=== PATIENT | male | born 1965 | race Caucasian/White ===

== ENCOUNTER 2016-09-27 23:59 | Emergency (ER) | payer BC, OTHER ==
--- NOTE | 2016-09-28 00:21 | EDM.PDOC ---
ED HPI GENERAL MEDICAL PROBLEM - General Chief Complaint: General Stated Complaint: SWOLLED A RAZAR Time Seen by Provider: 09/28/16 00:20 Source of Information: Reports: Patient, Police - History of Present Illness INITIAL COMMENTS - FREE TEXT/NARRATIVE: HISTORY AND PHYSICAL: History of present illness: Patient reports that he had swallowed a razor blade while incarcerated, ingestion first reported at 9 PM Now he denies doing so No fever nausea vomiting chills sweats chest pain shortness breath headache dizziness palpitation no bowel or urine symptoms Review of systems: As per history of present illness and below otherwise all systems reviewed and negative. Past medical history: As per history of present illness and as reviewed below otherwise noncontributory. Surgical history: As per history of present illness and as reviewed below otherwise noncontributory. Social history: No reported history of drug or alcohol abuse. Family history: As per history of present illness and as reviewed below otherwise noncontributory. Physical exam: HEENT: Atraumatic, normocephalic, pupils reactive, negative for conjunctival pallor or scleral icterus, mucous membranes moist, throat clear, neck supple, nontender, trachea midline. Lungs: Clear to auscultation, breath sounds equal bilaterally, chest nontender. Heart: S1S2, regular, negative for clicks, rubs, or JVD. Abdomen: Soft, nondistended, nontender. Negative for masses or hepatosplenomegaly. Negative for costovertebral tenderness. Pelvis: Stable nontender. Genitourinary: Deferred. Rectal: Deferred. Extremities: Atraumatic, negative for cords or calf pain. Neurovascular unremarkable. Neuro: Awake, alert, oriented. Cranial nerves II through XII unremarkable. Cerebellum unremarkable. Motor and sensory unremarkable throughout. Exam nonfocal. Diagnostics: [] Chest one view Abdominal x-ray one view Therapeutics: [] None Impression: [] No radio opaque foreign body Malingering Definitive disposition and diagnosis as appropriate pending reevaluation and review of above. - Related Data Allergies Allergy/AdvReac Type Severity Reaction Status Date / Time No Known Allergies Allergy Verified 09/28/16 00:20 Home Meds: Home Meds ALPRAZolam [Xanax] 1 mg PO TID 09/28/16 [History] ARIPiprazole [Abilify] 1 mg PO ASDIRECTED 09/28/16 [History] carBAMazepine [Tegretol] 400 mg PO BID 09/28/16 [History] ED ROS GENERAL - Review of Systems Review Of Systems: ROS reveals no pertinent complaints other than HPI. ED EXAM, GENERAL - Physical Exam Exam: See Below Course - Vital Signs Last Recorded V/S: Last Vital Signs Temp 36.7 C 09/28/16 00:20 Pulse 65 09/28/16 00:20 Resp 16 09/28/16 00:20 BP 182/98 H 09/28/16 00:20 Pulse Ox 94 L 09/28/16 00:20 - Orders/Labs/Meds Orders: Active Orders 24 hr Category Date Time Status Abdomen 1V Upright [CR] Stat Exams 09/28/16 00:21 Taken Chest 1V Frontal [CR] Stat Exams 09/28/16 00:21 Ordered Departure - Departure Time of Disposition: 01:59 Disposition: Home, Self-Care 01 Condition: good Clinical Impression: Malingering Clinical Impression: (Ruled Out): Physically well but worried - Discharge Information Referrals: PCP,None [Primary Care Provider] - Forms: ED Department Discharge - My Orders Last 24 Hours: My Active Orders 09/28/16 00:21 Abdomen 1V Upright [CR] Stat Chest 1V Frontal [CR] Stat - Assessment/Plan Last 24 Hours: My Active Orders 09/28/16 00:21 Abdomen 1V Upright [CR] Stat Chest 1V Frontal [CR] Stat
[2016-09-28 02:46] VITALS: BP 140/80
--- NOTE | 2016-09-29 13:43 | CR ---
EXAM DATE: 09/27/16 PATIENT'S AGE: 51 Patient: GONZALO ROGERS Facility: [place], [place] Site . Site : 1965 Study: XRay Chest [id number]/29/2017 1:37:32 AM Ordering Physician: Pura Garcia Final Report: INDICATIONS: Possible foreign body. Razor. TECHNIQUE: Chest 1 view. COMPARISON: Abdominal radiograph same day. Chest radiograph 05/12/2013. FINDINGS: No pneumothorax or pleural effusion. The lungs are clear. Cardiac and mediastinal contours are within normal limits. Surgical anchors in the left humeral head. No radiopaque foreign body demonstrated. IMPRESSION: No evidence of acute cardiopulmonary disease or radio-opaque foreign body. Dictated by Milton Driver MD @ 09/28/2016 1:54:34 AM Dictated by: Milton Driver MD @ 09/28/2016 01:54:43 (Electronic Signature) Report Signed by Proxy. CAROL
--- NOTE | 2016-09-29 13:44 | CR ---
EXAM DATE: 09/27/16 PATIENT'S AGE: 51 Patient: GONZALO ROGERS Facility: [place], [place] Site . Site : 1965 Study: XRay Abdomen [id number]/29/2017 1:37:55 AM Ordering Physician: Pura Garcia Final Report: Indication: Possible foreign body. A razor. Technique: Abdomen two views. Comparison: Chest radiograph same day. Findings: The bowel gas pattern is nonobstructive. No evidence of free intraperitoneal gas. No radiopaque foreign body demonstrated. Fecal loading of the colon. Soft tissues elsewhere as imaged are unremarkable. Mild degenerative changes of the spine. Impression: No evidence of radiopaque foreign body in the abdomen. Dictated by Milton Driver MD @ 09/28/2016 1:56:28 AM Dictated by: Milton Driver MD @ 09/28/2016 01:56:37 (Electronic Signature) Report Signed by Proxy. CAROL
== END 2016-09-28 02:10 ==
LOC: MW.ED 23:59
DX: Z76.5 Malingerer [conscious simulation] (principal)
CPT/HCPCS: 71010; 71010-26; 74000; 74000-26; 99282; 99283

== ENCOUNTER 2016-10-19 10:13 | Emergency (ER) | payer BC ==
[2016-10-19 10:30] VITALS: BP 161/95
== END 2016-10-19 11:08 | disposition left against medical advice (07) ==
LOC: MW.ED 10:13
DX: Z53.21 Procedure and treatment not carried out due to patient leaving prior to being seen by health care provider (principal)
CPT/HCPCS: 99282

== ENCOUNTER 2016-10-20 07:26 | Emergency (ER) | payer BC ==
--- NOTE | 2016-10-20 07:44 | EDM.PDOC ---
ED HPI GENERAL MEDICAL PROBLEM - General Chief Complaint: General Stated Complaint: RIB, SHOULDER PAIN Time Seen by Provider: 10/20/16 07:38 - History of Present Illness INITIAL COMMENTS - FREE TEXT/NARRATIVE: HISTORY AND PHYSICAL: History of present illness: This patient is a 51-year-old male who has a history of behavioral issues for which he is followed and presents with complaints of some right rib pain that he states started on September 26 after an injury to the area and the pain has persisted. The patient was seen in the ED here on September 27 with another complaint which did not woods out to have any truthfulness--I have reviewed that chart. The patient states that he has had persistent pain in the rib cage area since September 26 and actually registered yesterday as an ED patient to be seen for same. He was evaluated and imaging was ordered but after less than 25 minutes the patient left the room and told registration that x-ray was" taking too long" and he was leaving. A provider was never able to speak with them prior to his departure. He re-presents today with the same symptoms of the right rib/chest wall pain as well as feeling some shortness of breath. The patient states he works every day and he has been using icy hot and [id number] Tylenol based products as he says he should not be taking Motrin based products provider. He did not reinjure the area such as falling but says that he doesn't let her physical activity with his job and he thinks he re-aggravated the problem. He has no left-sided chest pain and no abdominal pain. The patient also states that yesterday he was concerned because the pain was radiating around to his posterior ribs and to the shoulder which he had not had before. Review of systems: As per history of present illness and below otherwise all systems reviewed and negative. Past medical history: As per history of present illness and as reviewed below otherwise noncontributory. Surgical history: As per history of present illness and as reviewed below otherwise noncontributory. Social history: No reported history of drug or alcohol abuse. Family history: As per history of present illness and as reviewed below otherwise noncontributory. Physical exam: Gen.: Well-developed well-nourished male who is nontoxic and vital signs reviewed by me HEENT: Atraumatic, normocephalic, negative for conjunctival pallor or scleral icterus, mucous membranes moist, throat clear, neck supple, nontender, trachea midline. Lungs: Clear to auscultation, breath sounds equal bilaterally, chest nontender on palpation but he indicates the area of discomfort as the right anterior ribs just underneath the breast tissue. There is no ecchymosis erythema or crepitus appreciated and no palpable bony defects.. Heart: S1S2, regular rate and rhythm no overt murmurs. Abdomen: Soft, nondistended, nontender. Negative for masses or hepatosplenomegaly. NABS Skin: No overt rashes or lesions and normal turgor; more specifically there is no rash seen in the right chest wall region of pain Genitourinary: Deferred. Rectal: Deferred. Extremities: Atraumatic, negative for cords or calf pain. Neurovascular unremarkable. Neuro: Awake, alert, oriented. Cranial nerves II through XII unremarkable. Cerebellum unremarkable. Motor and sensory unremarkable throughout. Exam nonfocal. Diagnostics: Right RIBS with chest x-ray Therapeutics: none Impression: Right chest wall/rib pain subacute with history of injury stable Definitive disposition and diagnosis as appropriate pending reevaluation and review of above. Right Side of Ribs Pain Score (Numeric/FACES): 7 - Related Data Allergies Allergy/AdvReac Type Severity Reaction Status Date / Time Sulfa (Sulfonamide Allergy Hives Verified 10/20/16 07:39 Antibiotics) Home Meds: Home Meds ALPRAZolam [Xanax] 1 mg PO TID 09/28/16 [History] ARIPiprazole [Abilify] 1 mg PO ASDIRECTED 09/28/16 [History] carBAMazepine [Tegretol] 200 mg PO BID 09/28/16 [History] Albuterol Sulfate [Ventolin Hfa] 1 dose INH ASDIRECTED PRN 10/19/16 [History] Budesonide/Formoterol Fumarate [Symbicort 80-4.5 Mcg Inhaler] 2 puff INH BID [History] Pantoprazole Sodium [Protonix] 20 mg PO ASDIRECTED 10/19/16 [History] traZODone HCl [Trazodone HCl] 300 mg INH BEDTIME 10/19/16 [History] Past Medical History HEENT History: Reports: None Cardiovascular History: Reports: None Respiratory History: Reports: Asthma, Bronchitis, Recurrent, Pneumonia, Recurrent Gastrointestinal History: Reports: None, GERD, Other (See Below) Other Gastrointestinal History: barretts esophagus Genitourinary History: Reports: None Musculoskeletal History: Reports: None Neurological History: Reports: None Psychiatric History: Reports: Addiction, Anxiety, Bipolar, Depression Endocrine/Metabolic History: Reports: None, Other (See Below) Other Endocrine/Metabolic History: "lymphocytic colitis" Hematologic History: Reports: None Oncologic (Cancer) History: Reports: None Dermatologic History: Reports: None - Infectious Disease History Infectious Disease History: Reports: Hepatitis C - Past Surgical History Male Surgical History: Reports: None Musculoskeletal Surgical History: Reports: Shoulder Surgery Social & Family History - Family History Family Medical History: Noncontributory - Tobacco Use Smoking Status *Q: Heavy Tobacco Smoker Years of Tobacco use: 35 Packs/Tins Daily: 2 - Caffeine Use Caffeine Use: Reports: Coffee - Recreational Drug Use Recreational Drug Use: No ED ROS GENERAL - Review of Systems Review Of Systems: ROS reveals no pertinent complaints other than HPI. ED EXAM, GENERAL - Physical Exam Exam: See Below (See dictation) Course - Vital Signs Last Recorded V/S: Last Vital Signs Temp 36.4 C 10/20/16 07:27 Pulse 67 10/20/16 07:27 Resp 18 10/20/16 07:27 BP 156/81 H 10/20/16 07:27 Pulse Ox 95 10/20/16 07:27 Departure - Departure Time of Disposition: 08:50 Disposition: Home, Self-Care 01 Condition: Good Clinical Impression: Rib pain on right side - Discharge Information Referrals: PCP,None [Primary Care Provider] - Forms: ED Department Discharge Additional Instructions: The following information is given to patients seen in the emergency department who are being discharged to home. This information is to outline your options for follow-up care. We provide all patients seen in our emergency department with a follow-up referral. The need for follow-up, as well as the timing and circumstances, are variable depending upon the specifics of your emergency department visit. If you don't have a primary care physician on staff, we will provide you with a referral. We always advise you to contact your personal physician following an emergency department visit to inform them of the circumstance of the visit and for follow-up with them and/or the need for any referrals to a consulting specialist. The emergency department will also refer you to a specialist when appropriate. This referral assures that you have the opportunity for followup care with a specialist. All of these measure are taken in an effort to provide you with optimal care, which includes your followup. Under all circumstances we always encourage you to contact your private physician who remains a resource for coordinating your care. When calling for followup care, please make the office aware that this follow-up is from your recent emergency room visit. If for any reason you are refused follow-up, please contact the [facility] emergency department at and ask to speak to the emergency department charge nurse. [facility] Primary care- Internal Medicine and Family [address] [address] Continue to use [id number] medications as needed and please follow-up with your provider in the clinic several days for reevaluation and further care. Return here as needed as discussed
--- NOTE | 2016-10-20 08:47 | CR ---
EXAMINATION: PA chest and right ribs. HISTORY: Trauma. FINDINGS: The trachea is midline. The cardiomediastinal silhouette is within normal limits. No pulmonary infil trates, effusions or pneumothorax. Osseous structures appear unremarkable. No displaced rib fracture. IMPRESSION: No acute cardiopulmonary process.
[2016-10-20 09:21] VITALS: BP 144/78
== END 2016-10-20 09:17 | disposition home or self-care (01) ==
LOC: MW.ED 07:26
DX: R07.81 Pleurodynia (principal); J45.909 Unspecified asthma, uncomplicated; K21.9 Gastro-esophageal reflux disease without esophagitis; F41.9 Anxiety disorder, unspecified; F31.9 Bipolar disorder, unspecified; F17.210 Nicotine dependence, cigarettes, uncomplicated; Z98.890 Other specified postprocedural states; Z88.2 Allergy status to sulfonamides
CPT/HCPCS: 71101-26-RT; 71101-RT; 99282; 99283

== ENCOUNTER 2016-11-24 07:42 | Observation (INO) | payer BC, MEDICAID ==
[~2016-11-24 07:42] MED LIST: Bupivacaine 0.25%/EPINEPHrine 1:200,000 10 ML SDV ONE; Lactated Ringers 1,000 ML IV SCH; ceFAZolin 2 GM in Premix Bag 1 BAG IV ONE
[2016-11-24] MEDS ORDERED: Midazolam 1 MG/ML 2 ML SDV ONE (08:15)
[2016-11-24] MEDS ORDERED: Dexamethasone 4 MG/ML 5 ML MDV ONE (08:15)
[2016-11-24] MEDS ORDERED: Lidocaine 2% 5 ML SDV ONE (08:15)
[2016-11-24] MEDS ORDERED: Ondansetron 4 MG/2 ML SDV ONE (08:15)
[2016-11-24] MEDS ORDERED: HYDROmorphone 2 MG/ML Syringe ONE (08:15)
[2016-11-24] MEDS ORDERED: fentaNYL 250 MCG/5 ML SDV ONE (08:15)
[2016-11-24] MEDS ORDERED: Propofol 200 MG/20 ML SDV ONE (08:15)
[2016-11-24] MEDS ORDERED: Albuterol/Ipratropium 3.0-0.5 MG/3 ML Neb Soln NEB ONE ×2 (08:30→12:53)
[2016-11-24] MEDS ORDERED: Scopolamine 1.5 MG Transdermal Patch TRDERM PRN (08:30)
--- NOTE | 2016-11-24 08:36 | PCM.PREANE ---
Preanesthetic Assessment - Anesthesia/Transfusion/Family Hx Anesthesia History: Prior Anesthesia Without Reaction Family History of Anesthesia Reaction: No Transfusion History: No Prior Transfusion(s) Intubation History: Unknown - Review of Systems General: No Symptoms Pulmonary: Shortness of Breath Cardiovascular: No Symptoms Gastrointestinal: Abdominal Pain Neurological: No Symptoms Other: Reports: None - Physical Assessment O2 Sat by Pulse Oximetry: 94 Respiratory Rate: 16 Vital Signs: Last Vital Signs Temp 36.7 C 11/24/16 08:30 Pulse 55 L 11/24/16 08:30 Resp 16 11/24/16 08:30 BP 141/86 H 11/24/16 08:30 Pulse Ox 94 L 11/24/16 08:30 Height: 1.73 m Weight: 117.8 kg ASA Class: 3 Mental Status: Alert & Oriented x3 Airway Class: Mallampati = 2 Dentition: Reports: Partial (bridges upper and lower on the side) Thyro-Mental Finger Breadths: 3 Mouth Opening Finger Breadths: 2 ROM/Head Extension: Limited/Partial Lungs: Clear to Auscultation, Normal Respiratory Effort, Decreased Breath Sounds Cardiovascular: Regular Rate, Regular Rhythm - Allergies Allergies/Adverse Reactions: Allergies Allergy/AdvReac Type Severity Reaction Status Date / Time Sulfa (Sulfonamide Allergy Hives Verified 10/20/16 07:39 Antibiotics) - Blood Blood Available: No - Anesthesia Plan Pre-Op Medication Ordered: None - Acknowledgements Anesthesia Type Planned: General Anesthesia Pt an Appropriate Candidate for the Planned Anesthesia: Yes Alternatives and Risks of Anesthesia Discussed w Pt/Guardian: Yes Pt/Guardian Understands and Agrees with Anesthesia Plan: Yes PreAnesthesia Questionnaire HEENT History: Reports: None Cardiovascular History: Reports: None Respiratory History: Reports: Asthma, Bronchitis, Recurrent, PE, Pneumonia, Recurrent Other Respiratory History: no pneumonia or bronchitis for over a year, states PE in 2003 Gastrointestinal History: Reports: Colon Polyp, GERD, Hepatitis, Other (See Below) Other Gastrointestinal History: chronic cholecystitis,barretts esophagus, hx of hepatits C (has been treated), h/o colitis Genitourinary History: Reports: None Musculoskeletal History: Reports: None Neurological History: Reports: None Psychiatric History: Reports: Addiction, Anxiety, Bipolar, Depression Endocrine/Metabolic History: Reports: Obesity/BMI 30+, Other (See Below) Hematologic History: Reports: None Oncologic (Cancer) History: Reports: None Dermatologic History: Reports: Psoriasis - Infectious Disease History Infectious Disease History: Reports: Hepatitis C - Past Surgical History Head Surgeries/Procedures: Reports: None GI Surgical History: Reports: Colonoscopy, EGD, Hernia, Abdominal, Hernia Repair /Other Male Surgical History: Reports: None Musculoskeletal Surgical History: Reports: Shoulder Surgery Other Musculoskeletal Surgeries/Procedures:: left rotator cuff repair, rt heel surgery x3 with screws - SUBSTANCE USE Smoking Status *Q: Current Every Day Smoker (smoked 2 1/2 ppd, recently cut down to 1 ppd) Tobacco Use Within Last Twelve Months: Cigarettes Recreational Drug Use History: No - HOME MEDS Home Medications: Home Meds ALPRAZolam [Xanax] 1 mg PO TID 09/28/16 [History] ARIPiprazole [Abilify] 1 mg PO ASDIRECTED PRN 09/28/16 [History] carBAMazepine [Tegretol] 200 mg PO BID 09/28/16 [History] Albuterol Sulfate [Ventolin Hfa] 1 dose INH ASDIRECTED PRN 10/19/16 [History] Budesonide/Formoterol Fumarate [Symbicort 80-4.5 Mcg Inhaler] 2 puff INH BID [History] Pantoprazole Sodium [Protonix] 20 mg PO ASDIRECTED 10/19/16 [History] traZODone HCl [Trazodone HCl] 300 mg PO BEDTIME 10/19/16 [History] - CURRENT (IN HOUSE) MEDS Current Meds: Current Medications Lactated Ringer's (Ringers, Lactated) 1,000 mls @ 125 mls/hr IV ASDIRECTED ANGELICA Scopolamine (Transderm-Scop) 1.5 mg TRDERM Q72H PRN PRN Reason: Nausea Discontinued Medications Bupivacaine HCl/Epinephrine Bitart (Marcaine 0.25%/Epinephrine 1:200,000) Confirm Administered Dose 20 ml .ROUTE .STK-MED ONE Stop: 11/24/16 07:21 Dexamethasone (Dexamethasone) Confirm Administered Dose 20 mg .ROUTE .STK-MED ONE Stop: 11/24/16 08:16 Fentanyl (Sublimaze) Confirm Administered Dose 250 mcg .ROUTE .STK-MED ONE Stop: 11/24/16 08:16 Hydromorphone HCl (Dilaudid) Confirm Administered Dose 2 mg .ROUTE .STK-MED ONE Stop: 11/24/16 08:16 Cefazolin Sodium/Dextrose 2 gm (/ Premix) 50 mls @ 100 mls/hr IV ONETIME ONE Stop: 11/24/16 05:29 Lidocaine (Xylocaine-Mpf 2%) Confirm Administered Dose 5 ml .ROUTE .STK-MED ONE Stop: 11/24/16 08:16 Midazolam HCl (Versed 1 Mg/Ml) Confirm Administered Dose 2 mg .ROUTE .STK-MED ONE Stop: 11/24/16 08:16 Ondansetron HCl (Zofran) Confirm Administered Dose 4 mg .ROUTE .STK-MED ONE Stop: 11/24/16 08:16 Propofol (Diprivan 20 Ml) Confirm Administered Dose 200 mg .ROUTE .STK-MED ONE Stop: 11/24/16 08:16 Rocuronium [place] (Zemuron) Confirm Administered Dose 50 mg .ROUTE .STK-MED ONE Stop: 11/24/16 08:16
[2016-11-24] MEDS ORDERED: Bupivacaine 0.25%/EPINEPHrine 1:200,000 10 ML SDV ONE (09:06)
[2016-11-24] MEDS ORDERED: ceFAZolin 1 GM Vial ONE (09:23)
[2016-11-24] MEDS ORDERED: Acetaminophen/oxyCODONE 325-10 MG Tab PO ONE (09:25)
[2016-11-24] MEDS ORDERED: Octyl 2-Cyanoacrylate 1 Tube ONE ×2 (12:05→12:16)
--- NOTE | 2016-11-24 12:29 | PCM.OPNOTE ---
- General Post-Op/Procedure Note Date of Surgery/Procedure: 11/24/16 Operative Procedure(s): lap cholecystectomy Pre Op Diagnosis: acute and chr cholecystitis Post-Op Diagnosis: Same Anesthesia Technique: General ET Tube Primary Surgeon: Pepe Arriaza Secondary Surgeon: Humberto Sheehan Pathology: sent Complications: None Condition: Good
[2016-11-24] MEDS ORDERED: Acetaminophen/oxyCODONE 325-5 MG Tab PO PRN (12:31)
[2016-11-24] MEDS: fentaNYL 100 MCG/2 ML SDV IVPUSH PRN ×4 (13:00→13:30)
--- NOTE | 2016-11-24 13:18 | OR ---
SURGEON: Pepe Arriaza MD DATE OF PROCEDURE: 11/24/2016 PREOPERATIVE DIAGNOSIS: Acute on chronic cholecystitis. POSTOPERATIVE DIAGNOSIS: Acute on chronic cholecystitis. PROCEDURE PERFORMED: Laparoscopic cholecystectomy. TERRITORY DEVELOPMENT MANAGER: Dr. Sheehan. COMPLICATIONS: None. FINDINGS: 1. The patient's liver is very big and that makes the surgery with quite challenging. 2. The patient has many gallstones, two of them bigger than 1.5 cm, and many other small stones. 3. Wall is not thickened, but is yellow and green consistent with chronic cholecystitis, and also because the patient has a large mesh in ventral hernia and also have incarceration on the ventral hernia. It makes the surgery more challenging because of the hernia and mass and we use Sima technique to go through the umbilicus to get into the umbilical site. The rest of the surgery is follow exactly like the gallbladder surgery. DESCRIPTION OF PROCEDURE: The patient was taken to the operating room and placed in the supine position. After the intubation of general endotracheal anesthesia, the patient's abdomen was prepped and draped in the usual sterile fashion. Using [place], a 12 mm trocar was placed supraumbilically and then followed with pneumoperitoneum. A 5 mm trocar was placed in the epigastrium and two 5 mm trocars placed in the right upper quadrant. The placement of the last three trocars was done under direct video supervision. Upon gaining entrance to the abdominal cavity, an extensive examination was then performed. The gallbladder was located and identified and retracted to the dome of the liver at the triangle of Calot. The cystic duct was clipped three more times and then using the endoscopic clip, was transected with placement of the endoscopic clip and transection was performed with care, ensuring the posterior prong of the instruments were clearly visualized prior to exercising the procedure. The gallbladder was dissected using electrocautery out of the liver bed and then removed using endoscopic bag through the umbilical site. The gallbladder was removed en bloc and there was no bile spillage and this was then followed with extensive irrigation until the bile was clear from blood and bile. The trocars were then removed under direct video supervision. The 12 mm umbilical site was then closed with deep stitches using 0 Vicryl followed with proximal stitches using 3-0 Vicryl and Dermabond. The other three trocar sites were closed with 3-0 Vicryl followed with approximation of skin with Dermabond. The patient was then awakened and extubated and transferred to the recovery room in hemodynamically stable condition. At the conclusion of the surgery, before closing the abdominal wound, instrument count and sponge count were done and were correct. The patient tolerated the procedure well and there were no intraoperative complications. Dr. Arriaza was present through the whole procedure. Just before surgery, a timeout was called. The patient was identified and procedure identified and procedure started. Intraoperative findings as dictated above. As always, thank you for the kind referral. GAVI HERRERA /[id number]
--- NOTE | 2016-11-24 13:47 | PCM.POSTAN ---
POST ANESTHESIA ASSESSMENT - MENTAL STATUS Mental Status: Alert - RESPIRATORY Respiratory Status: Supplemental Oxygen, Labored Respirations - CARDIOVASCULAR CV Status: Pulse Rate WNL, Blood Pressure Stable - GASTROINTESTINAL GI Status: No Symptoms, [place] - POST OP HYDRATION Hydration Status: Adequate & Stable, Hypovolemic - OBSERVATIONS Free Text/Narrative:: sats 90% on supplemental oxygen, labored breathing, will be admitted to ICU for observation overnight and pressure support oxygen.
[2016-11-24] MEDS ORDERED: Albuterol/Ipratropium 3.0-0.5 MG/3 ML Neb Soln NEB PRN (14:04)
--- NOTE | 2016-11-24 14:49 | PCM.SN ---
- Free Text/Narrative Note: addendum to op note [id number]
[2016-11-24] MEDS: Morphine 10 MG/ML Syringe IV PRN ×2 (16:36→20:40)
[2016-11-24] MEDS: Albuterol/Ipratropium 3.0-0.5 MG/3 ML Neb Soln NEB SCH ×2 (18:34→21:39)
[2016-11-24] MEDS ORDERED: Diazepam 2 MG Tab PO ONE (19:18)
[2016-11-24] MEDS ORDERED: ARIPIPRAZOLE 1 MG PO PRN (19:19)
[2016-11-24] MEDS ORDERED: Non-Formulary Medication 1 Each (Pantoprazole Sodium [Protonix] 20 MG) PO SCH (19:30)
[2016-11-24] MEDS: Lactated Ringers 1,000 ML IV SCH (20:08)
[2016-11-24] MEDS: traZODone 50 MG Tab PO SCH (20:12)
[2016-11-24] MEDS: carBAMazepine 200 MG Tab PO SCH (20:13)
--- NOTE | 2016-11-24 21:27 | OR ---
SURGEON: Pepe Arriaza MD DATE OF PROCEDURE: 11/24/2016 ADDENDUM: At the end of the case, two piece of Surgicel was inserted for hemostasis as the patient had some bleeding, and hemostasis achieved by using electrocautery as well as Surgicel two pieces inserted. GAVI HERRERA /[id number] MTDD
[2016-11-24] MEDS: HYDROmorphone 2 MG Tab PO PRN (21:52)
[2016-11-24] MEDS: Docusate Sodium 100 MG Cap PO SCH (21:56)
[2016-11-25] MEDS ORDERED: Diazepam 2 MG Tab PO ONE (00:13)
[2016-11-25] MEDS: Morphine 10 MG/ML Syringe IV PRN ×2 (00:40→08:13)
[2016-11-25] MEDS: Albuterol/Ipratropium 3.0-0.5 MG/3 ML Neb Soln NEB SCH ×6 (02:23→21:51)
[2016-11-25] MEDS: HYDROmorphone 2 MG Tab PO PRN ×3 (04:14→22:02)
[2016-11-25 05:54] LABS: CHLORIDE,CL 106 mmol/L (98-110); SODIUM,NA 141 mmol/L (136-146)
[2016-11-25] MEDS: Pantoprazole 40 MG Tab.CR PO SCH (07:17)
[2016-11-25] MEDS: carBAMazepine 200 MG Tab PO SCH ×2 (08:15→22:03)
[2016-11-25] MEDS: Docusate Sodium 100 MG Cap PO SCH (08:15)
[2016-11-25] MEDS: ARIPiprazole 10 MG Tab PO SCH (09:07)
[2016-11-25] MEDS ORDERED: HYDROmorphone 2 MG Tab PO PRN (09:11)
[2016-11-25] MEDS ORDERED: Iopamidol 755 MG/ML 500 ML Multipack Bottle IVPUSH STA (10:15)
--- NOTE | 2016-11-25 10:19 | PCM.SURGPN ---
- General Info Date of Service: 11/25/16 - Review of Systems General: Reports: No Symptoms Gastrointestinal: Reports: No Symptoms - Patient Data Vitals - Most Recent: Last Vital Signs Temp 99.4 F 11/25/16 08:00 Pulse 73 11/24/16 13:45 Resp 20 11/25/16 08:00 BP 117/58 L 11/25/16 08:00 Pulse Ox 92 L 11/25/16 08:00 Weight - Most Recent: 271 lb 9.752 oz I&O - Last 24 Hours: Intake & Output 11/24/16 11/25/16 11/25/16 22:59 06:59 14:59 Intake Total 50 250 Output Total 750 Balance 50 -500 Lab Results Last 24 Hrs: Laboratory Results - last 24 hr 11/25/16 11/25/16 11/25/16 Range/Units 05:05 05:05 05:05 WBC 13.58 H (4.0-11.0) K/uL RBC 4.47 L (4.50-5.90) M/uL Hgb 13.7 (13.0-17.0) g/dL Hct 41.8 (38.0-50.0) % MCV 93.5 (80.0-98.0) fL MCH 30.6 (27.0-32.0) pg MCHC 32.8 (31.0-37.0) g/dL RDW Std Deviation 47.4 (28.0-62.0) fl RDW Coeff of Jalen 14 (11.0-15.0) % Plt Count 207 (150-400) K/uL MPV 10.30 (7.40-12.00) fL Neut % (Auto) 72.7 (48.0-80.0) % Lymph % (Auto) 14.7 L (16.0-40.0) % [place] % (Auto) 12.3 (0.0-15.0) % Eos % (Auto) 0.2 (0.0-7.0) % Baso % (Auto) 0.1 (0.0-1.5) % Neut # (Auto) 9.9 H (1.4-5.7) K/uL Lymph # (Auto) 2.0 (0.6-2.4) K/uL [place] # (Auto) 1.7 H (0.0-0.8) K/uL Eos # (Auto) 0.0 (0.0-0.7) K/uL Baso # (Auto) 0.0 (0.0-0.1) K/uL Nucleated RBC % 0.0 /100WBC Nucleated RBCs # 0 K/uL Sodium 141 (136-146) mmol/L Potassium 4.1 (3.5-5.1) mmol/L Chloride 106 (98-110) mmol/L Carbon Dioxide 26 (21-31) mmol/L BUN 12 (6.0-23.0) mg/dL Creatinine 0.8 (0.6-1.5) mg/dL Est Cr Clr Drug Dosing 107.27 mL/min Estimated GFR (MDRD) > 60.0 ml/min Glucose 96 (60-110) mg/dL Calcium 8.7 L (8.8-10.8) mg/dL B-Natriuretic Peptide 73 (<100) PG/ML Med Orders - Current: Current Medications Albuterol/Ipratropium (Duoneb 3.0-0.5 Mg/3 Ml) 3 ml NEB Q4HRRT PRN PRN Reason: Shortness of Breath Albuterol/Ipratropium (Duoneb 3.0-0.5 Mg/3 Ml) 3 ml NEB Q4HRRT [facility] Last Admin: 11/25/16 06:50 Dose: 3 ml Aripiprazole (Abilify) 15 mg PO DAILY [facility] Last Admin: 11/25/16 09:07 Dose: 15 mg Carbamazepine (Tegretol Tab) 200 mg PO BID [facility] Last Admin: 11/25/16 08:15 Dose: 200 mg Docusate Sodium (Colace) 100 mg PO DAILY [facility] Last Admin: 11/25/16 08:15 Dose: 100 mg Hydromorphone HCl (Dilaudid) 1 mg IV Q2H PRN PRN Reason: PAIN Hydromorphone HCl (Dilaudid) 2 mg PO Q6H PRN PRN Reason: Pain Lactated Ringer's (Ringers, Lactated) 1,000 mls @ 75 mls/hr IV ASDIRECTED [facility] Last Admin: 11/24/16 20:08 Dose: 75 mls/hr Iopamidol (Isovue Multipack-370 (76%)) 100 ml IVPUSH ONETIME STA Stop: 11/25/16 10:16 Pantoprazole Sodium (Protonix) 40 mg PO ACBREAKFAST [facility] Last Admin: 11/25/16 07:17 Dose: 40 mg Scopolamine (Transderm-Scop) 1.5 mg TRDERM Q72H PRN PRN Reason: Nausea Last Admin: 11/24/16 08:39 Dose: 1.5 mg Trazodone HCl (Trazodone) 300 mg PO BEDTIME [facility] Last Admin: 11/24/16 20:12 Dose: 300 mg Discontinued Medications Albuterol/Ipratropium (Duoneb 3.0-0.5 Mg/3 Ml) 3 ml NEB ONETIME ONE Stop: 11/24/16 08:31 Last Admin: 11/24/16 08:46 Dose: 3 ml Albuterol/Ipratropium (Duoneb 3.0-0.5 Mg/3 Ml) 3 ml NEB ONETIME ONE Stop: 11/24/16 12:54 Last Admin: 11/24/16 13:04 Dose: 3 ml Bupivacaine HCl/Epinephrine Bitart (Marcaine 0.25%/Epinephrine 1:200,000) Confirm Administered Dose 20 ml .ROUTE .STK-MED ONE Stop: 11/24/16 07:21 Bupivacaine HCl/Epinephrine Bitart (Marcaine 0.25%/Epinephrine 1:200,000) Confirm Administered Dose 10 ml .ROUTE .STK-MED ONE Stop: 11/24/16 09:07 Cefazolin Sodium (Ancef) Confirm Administered Dose 2 gm .ROUTE .STK-MED ONE Stop: 11/24/16 09:24 Dexamethasone (Dexamethasone) Confirm Administered Dose 20 mg .ROUTE .STK-MED ONE Stop: 11/24/16 08:16 Diazepam (Valium) 2 mg PO ONETIME ONE Stop: 11/24/16 19:19 Last Admin: 11/24/16 20:12 Dose: 2 mg Diazepam (Valium) 2 mg PO ONETIME ONE Stop: 11/25/16 00:14 Last Admin: 11/25/16 00:24 Dose: 2 mg Fentanyl (Sublimaze) Confirm Administered Dose 250 mcg .ROUTE .STK-MED ONE Stop: 11/24/16 08:16 Fentanyl (Sublimaze) 50 mcg IVPUSH SEECOMMENT PRN PRN Reason: Pain (moderate 4-6) Last Admin: 11/24/16 13:30 Dose: 50 mcg Hydromorphone HCl (Dilaudid) Confirm Administered Dose 2 mg .ROUTE .STK-MED ONE Stop: 11/24/16 08:16 Hydromorphone HCl (Dilaudid) 1 mg PO Q6H PRN PRN Reason: Pain Last Admin: 11/25/16 04:14 Dose: 1 mg Hydromorphone HCl (Dilaudid) 4 mg PO Q6H PRN PRN Reason: Pain Lactated Ringer's (Ringers, Lactated) 1,000 mls @ 125 mls/hr IV ASDIRECTED [facility] Last Infusion: 11/24/16 19:24 Dose: Infused Cefazolin Sodium/Dextrose 2 gm (/ Premix) 50 mls @ 100 mls/hr IV ONETIME ONE Stop: 11/24/16 05:29 Last Admin: 11/24/16 15:44 Dose: Not Given Lidocaine (Xylocaine-Mpf 2%) Confirm Administered Dose 5 ml .ROUTE .STK-MED ONE Stop: 11/24/16 08:16 Midazolam HCl (Versed 1 Mg/Ml) Confirm Administered Dose 2 mg .ROUTE .STK-MED ONE Stop: 11/24/16 08:16 Morphine Sulfate (Morphine) 3 mg IV Q4H PRN PRN Reason: Breakthrough Pain Last Admin: 11/25/16 08:13 Dose: 3 mg Octyl Cyanoacrylate (Dermabond Advance) Confirm Administered Dose 1 applic .ROUTE .STK-MED ONE Stop: 11/24/16 12:06 Octyl Cyanoacrylate (Dermabond Advance) Confirm Administered Dose 1 applic .ROUTE .STK-MED ONE Stop: 11/24/16 12:17 Ondansetron HCl (Zofran) Confirm Administered Dose 4 mg .ROUTE .STK-MED ONE Stop: 11/24/16 08:16 Oxycodone/Acetaminophen (Percocet 325-10 Mg) 1 tab PO ONETIME ONE Stop: 11/24/16 09:26 Last Admin: 11/24/16 15:44 Dose: Not Given Oxycodone/Acetaminophen (Percocet 325-5 Mg) 1 tab PO Q6H PRN PRN Reason: Pain Last Admin: 11/24/16 15:46 Dose: 1 tab Propofol (Diprivan 20 Ml) Confirm Administered Dose 200 mg .ROUTE .STK-MED ONE Stop: 11/24/16 08:16 Rocuronium [place] (Zemuron) Confirm Administered Dose 50 mg .ROUTE .STK-MED ONE Stop: 11/24/16 08:16 Rocuronium [place] (Zemuron) Confirm Administered Dose 50 mg .ROUTE .STK-MED ONE Stop: 11/24/16 09:53 - Exam General: Alert, Oriented GI/Abdominal Exam: Soft Extremities: Pedal Edema - Problem List Review Problem List Initiated/Reviewed/Updated: Yes - My Orders Last 24 Hours: Active Orders 24 hr Category Date Time Status Admission Status [Patient Status] [ADT] Routine ADT 11/24/16 12:30 Active Admission Status [Patient Status] [ADT] Routine ADT 11/24/16 14:46 Active Communication Order [RC] ROUTINE Care 11/24/16 21:50 Active RT Aerosol Therapy [RC] ASDIRECTED Care 11/24/16 12:53 Active RT Aerosol Therapy [RC] ASDIRECTED Care 11/24/16 14:05 Active RT Aerosol Therapy [RC] ASDIRECTED Care 11/24/16 14:06 Active Ang Chest [CT] Stat Exams 11/25/16 08:34 Ordered ARIPiprazole [Abilify] Med 11/25/16 09:00 Active 15 mg PO DAILY Albuterol/Ipratropium [DuoNeb 3.0-0.5 MG/3 ML] Med 11/24/16 18:00 Active 3 ml NEB Q4HRRT Albuterol/Ipratropium [DuoNeb 3.0-0.5 MG/3 ML] Med 11/24/16 14:04 Active 3 ml NEB Q4HRRT PRN Docusate Sodium [Colace] Med 11/24/16 21:45 Active 100 mg PO DAILY HYDROmorphone [Dilaudid] Med 11/25/16 09:11 Active 1 mg IV Q2H PRN HYDROmorphone [Dilaudid] Med 11/25/16 09:45 Active 2 mg PO Q6H PRN Iopamidol [Isovue Multipack-370 (76%)] Med 11/25/16 10:15 Stat 100 ml IVPUSH ONETIME STA Lactated Ringers [Ringers, Lactated] 1,000 ml Med 11/24/16 19:24 Active IV ASDIRECTED Pantoprazole [ProTONIX] Med 11/25/16 07:30 Active 40 mg PO ACBREAKFAST carBAMazepine [TEGretol Tab] Med 11/24/16 21:00 Active 200 mg PO BID traZODone Med 11/24/16 21:00 Active 300 mg PO BEDTIME Medication Orders Albuterol/Ipratropium (Duoneb 3.0-0.5 Mg/3 Ml) 3 ml NEB Q4HRRT PRN PRN Reason: Shortness of Breath Albuterol/Ipratropium (Duoneb 3.0-0.5 Mg/3 Ml) 3 ml NEB Q4HRRT [facility] Last Admin: 11/25/16 06:50 Dose: 3 ml Admin: 11/25/16 02:23 Dose: 3 ml Admin: 11/24/16 21:39 Dose: 3 ml Admin: 11/24/16 18:34 Dose: 3 ml Aripiprazole (Abilify) 15 mg PO DAILY [facility] Last Admin: 11/25/16 09:07 Dose: 15 mg Carbamazepine (Tegretol Tab) 200 mg PO BID [facility] Last Admin: 11/25/16 08:15 Dose: 200 mg Admin: 11/24/16 20:13 Dose: 200 mg Docusate Sodium (Colace) 100 mg PO DAILY [facility] Last Admin: 11/25/16 08:15 Dose: 100 mg Admin: 11/24/16 21:56 Dose: 100 mg Hydromorphone HCl (Dilaudid) 1 mg IV Q2H PRN PRN Reason: PAIN Hydromorphone HCl (Dilaudid) 2 mg PO Q6H PRN PRN Reason: Pain Lactated Ringer's (Ringers, Lactated) 1,000 mls @ 75 mls/hr IV ASDIRECTED [facility] Last Admin: 11/24/16 20:08 Dose: 75 mls/hr Iopamidol (Isovue Multipack-370 (76%)) 100 ml IVPUSH ONETIME STA Stop: 11/25/16 10:16 Pantoprazole Sodium (Protonix) 40 mg PO ACBREAKFAST [facility] Last Admin: 11/25/16 07:17 Dose: 40 mg Scopolamine (Transderm-Scop) 1.5 mg TRDERM Q72H PRN PRN Reason: Nausea Last Admin: 11/24/16 08:39 Dose: 1.5 mg Trazodone HCl (Trazodone) 300 mg PO BEDTIME [facility] Last Admin: 11/24/16 20:12 Dose: 300 mg - Assessment Assessment (Free Text/Narrative):: pt now remarked, he was having trouble 1 wks before surgery, he felt tire, LE swelling, somewhat SOB; he received breathing treatment prior to surgery; postop he admitted to icu; and is doing fine; because of pedal [place], and on 2 L , will bailon; blood work and ct scan; - Plan Plan (Free Text/Narrative):: pt now remarked, he was having trouble 1 wks before surgery, he felt tire, LE swelling, somewhat SOB; he received breathing treatment prior to surgery; postop he admitted to icu; and is doing fine; because of pedal [place], and on 2 L , will [place]on; blood work and ct scan;
--- NOTE | 2016-11-25 10:39 | CT ---
EXAMINATION: CTA chest HISTORY: Rule out PE COMPARISON: Radiograph dated 10/20/2016 TECHNIQUE: Axial CT images obtained through the chest following the administration of 100 mL of Isov ue-370 in the left ventricular fossa. FINDINGS: There is atelectasis within the lung bases. No definite focal consolidation or pleural eff usion. Nonpathologically enlarged mediastinal and hilar lymph nodes noted. The heart is mildly enlar ged. Thoracic aorta is normal in caliber. The main pulmonary arteries are patent without evidence of a pulmonary embolism. The right main pulmonary artery measures up to 2.2 cm. There is narrowing of the AP diameter of the trachea most notably inferior. Minimal coronary artery calcifications are not ed. Bilateral adrenal adenomas are noted. There is a healing right anterior rib fracture involving the right seventh rib. IMPRESSION: 1. No pulmonary embolism identified. 2. Mild cardiomegaly. 3. Enlarged pulmonary arteries, correlate for pulmonary hypertension. 4. Bibasilar atelectasis. 5. Bilateral adrenal adenomas. 6. 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
[2016-11-25] MEDS: Lactated Ringers 1,000 ML IV SCH (10:48)
[2016-11-25] MEDS: HYDROmorphone 1 MG/ML Syringe IV PRN ×2 (14:00→16:35)
[2016-11-25] MEDS: Nicotine 21 MG/24 Hr Patch TRDERM SCH (14:33)
[2016-11-25] MEDS ORDERED: Furosemide 40 MG/4 ML VIAL IVPUSH ONE (14:46)
--- NOTE | 2016-11-25 15:07 | PCM.CONS ---
H&P History of Present Illness - General Admit Problem/Dx: Admission Diagnosis/Problem Admission Diagnosis/Problem Acute cholecystitis - History of Present Illness Initial Comments - Free Text/Narative: 51 yo male with pmh of Asthma, 35 pack year smoker, and PE in 2002 who underwent laprascopic cholecystectomy. Following the procedure patient was hypoxic and was placed on Bipap. Today his is on 2 liters nasal canula satting low 90%. He does report shortness of breath. Prior to the procedure he may have been short of breath but did not pay much attention to it due to his gallbladder symptoms. He denies any cough or chest pain. Over the past month he has reported increase in his weight and swelling of his lower legs and hands. He had CT chest angio that reported no pulmonary embolsim, mild cardiomegaly, enlarged pulmonary artereis, bibasilar atelectasis and decreased diameter of the infeior trachea that may suggest tracheobronchomalacia. Right Abdomen Pain Score (Numeric/FACES): 8 - Related Data Allergies/Adverse Reactions: Allergies Allergy/AdvReac Type Severity Reaction Status Date / Time Sulfa (Sulfonamide Allergy Hives Verified 10/20/16 07:39 Antibiotics) Home Medications: Home Meds ALPRAZolam [Xanax] 1 mg PO TID 09/28/16 [History] carBAMazepine [Tegretol] 200 mg PO BID 09/28/16 [History] Albuterol Sulfate [Ventolin Hfa] 1 dose INH ASDIRECTED PRN 10/19/16 [History] Budesonide/Formoterol Fumarate [Symbicort 80-4.5 Mcg Inhaler] 2 puff INH BID [History] traZODone HCl [Trazodone HCl] 300 mg PO BEDTIME 10/19/16 [History] ARIPiprazole [Abilify] 15 mg PO DAILY 11/24/16 [History] Pantoprazole [ProTONIX] 40 mg PO ACBREAKFAST 11/24/16 [History] Past Medical History HEENT History: Reports: None Cardiovascular History: Reports: None Respiratory History: Reports: Asthma, Bronchitis, Recurrent, PE, Pneumonia, Recurrent Other Respiratory History: no pneumonia or bronchitis for over a year, states PE in 2002 Gastrointestinal History: Reports: Colon Polyp, GERD, Hepatitis, Other (See Below) Other Gastrointestinal History: chronic cholecystitis,barretts esophagus, hx of hepatits C (has been treated), h/o colitis Genitourinary History: Reports: None Musculoskeletal History: Reports: None Neurological History: Reports: None Psychiatric History: Reports: Addiction, Anxiety, Bipolar, Depression Endocrine/Metabolic History: Reports: Obesity/BMI 30+, Other (See Below) Hematologic History: Reports: None Oncologic (Cancer) History: Reports: None Dermatologic History: Reports: Psoriasis - Infectious Disease History Infectious Disease History: Reports: Hepatitis C - Past Surgical History Head Surgeries/Procedures: Reports: None GI Surgical History: Reports: Colonoscopy, EGD, Hernia, Abdominal, Hernia Repair /Other Male Surgical History: Reports: None Musculoskeletal Surgical History: Reports: Shoulder Surgery Other Musculoskeletal Surgeries/Procedures:: left rotator cuff repair, rt heel surgery x3 with screws Social & Family History - Family History Family Medical History: Noncontributory - Tobacco Use Smoking Status *Q: Current Every Day Smoker (smoked 2 1/2 ppd, recently cut down to 1 ppd) Years of Tobacco use: 35 Packs/Tins Daily: 1 - Caffeine Use Caffeine Use: Reports: Coffee Caffeine Use Comment: Pt reports 4-5 glasses daily - Recreational Drug Use Recreational Drug Use: No H&P Review of Systems - Review of Systems: Review Of Systems: ROS reveals no pertinent complaints other than HPI. Exam - Exam Exam: See Below - Vital Signs Vital Signs: Last Vital Signs Temp 37.4 C 11/25/16 12:21 Pulse 73 11/24/16 13:45 Resp 18 11/25/16 12:21 BP 117/64 11/25/16 12:21 Pulse Ox 94 L 11/25/16 14:26 Weight: 123.2 kg - Exam General: Alert, Oriented, 4 Lungs: Clear to Auscultation, Normal Respiratory Effort Cardiovascular: Regular Rate, Regular Rhythm Extremities: Pedal Edema (mild) Skin: Warm, Dry, Intact - Patient Data Lab Results Last 24 hrs: Laboratory Results - last 24 hr 11/25/16 11/25/16 11/25/16 Range/Units 05:05 05:05 05:05 WBC 13.58 H (4.0-11.0) K/uL RBC 4.47 L (4.50-5.90) M/uL Hgb 13.7 (13.0-17.0) g/dL Hct 41.8 (38.0-50.0) % MCV 93.5 (80.0-98.0) fL MCH 30.6 (27.0-32.0) pg MCHC 32.8 (31.0-37.0) g/dL RDW Std Deviation 47.4 (28.0-62.0) fl RDW Coeff of Jalen 14 (11.0-15.0) % Plt Count 207 (150-400) K/uL MPV 10.30 (7.40-12.00) fL Neut % (Auto) 72.7 (48.0-80.0) % Lymph % (Auto) 14.7 L (16.0-40.0) % [place] % (Auto) 12.3 (0.0-15.0) % Eos % (Auto) 0.2 (0.0-7.0) % Baso % (Auto) 0.1 (0.0-1.5) % Neut # (Auto) 9.9 H (1.4-5.7) K/uL Lymph # (Auto) 2.0 (0.6-2.4) K/uL [place] # (Auto) 1.7 H (0.0-0.8) K/uL Eos # (Auto) 0.0 (0.0-0.7) K/uL Baso # (Auto) 0.0 (0.0-0.1) K/uL Nucleated RBC % 0.0 /100WBC Nucleated RBCs # 0 K/uL Sodium 141 (136-146) mmol/L Potassium 4.1 (3.5-5.1) mmol/L Chloride 106 (98-110) mmol/L Carbon Dioxide 26 (21-31) mmol/L BUN 12 (6.0-23.0) mg/dL Creatinine 0.8 (0.6-1.5) mg/dL Est Cr Clr Drug Dosing 107.27 mL/min Estimated GFR (MDRD) > 60.0 ml/min Glucose 96 (60-110) mg/dL Calcium 8.7 L (8.8-10.8) mg/dL B-Natriuretic Peptide 73 (<100) PG/ML Result Diagrams: 11/25/16 05:05 11/25/16 05:05 Consult PN Assessment/Plan Procedures: Procedures ASSAY OF AMYLASE (11/16/16) ASSAY OF LIPASE (11/16/16) CHEST X-RAY 1 VIEW FRONTAL (09/27/16) COMPLETE CBC W/AUTO DIFF WBC (11/16/16) COMPREHEN METABOLIC PANEL (11/16/16) CT ABD & PELVIS W/O CONTRAST (11/19/16) ECHO EXAM OF ABDOMEN (10/28/16) EMERGENCY DEPT VISIT (10/20/16) EMERGENCY DEPT VISIT (10/19/16) EMERGENCY DEPT VISIT (09/27/16) HEPATITIS BE ANTIBODY (10/28/16) HEPATITIS C AB TEST (10/28/16) HEPATITIS C REVRS TRNSCRPJ (11/09/16) LIPID PANEL (10/28/16) ROUTINE VENIPUNCTURE (11/16/16) X-RAY EXAM OF ABDOMEN (09/27/16) X-RAY EXAM UNILAT RIBS/CHEST (10/20/16) Problem List Initiated/Reviewed/Updated: Yes My Orders Last 24 Hours: My Active Orders 11/25/16 11:50 Telemetry Monitoring [Cardiac Monitoring] [RC] . DIRECTED Echo Comp wo Cont [US] Stat 11/25/16 13:00 Nicotine [Habitrol] 21 mg TRDERM Q24H Plan: 51 yo male s/p cholecystectomy who has shortness of breath. This is likely multifactorial from asthma, history of smoking, atelectasis, and possible pulmonary hypertension and cardiomyopathy. Will give lasix and check echocardiogram.
--- NOTE | 2016-11-25 15:42 | PCM48HPAN ---
Post Anesthesia Note - EVALUATION WITHIN 48HRS OF ANESTHETIC Vital Signs in Normal Range: Yes Patient Participated in Evaluation: Yes Respiratory Function Stable: Yes Airway Patent: Yes Cardiovascular Function Stable: Yes Hydration Status Stable: Yes Pain Control Satisfactory: Yes Nausea and Vomiting Control Satisfactory: Yes Mental Status Recovered: Yes - COMMENTS/OBSERVATIONS Free Text/Narrative:: Pt recently walked from ICU out to his med/surg room. He is currently sitting up in a chair. Pt states he is less short of breath than yesterday and that breathing treatments have been helping the most.
[2016-11-25] MEDS: traZODone 50 MG Tab PO SCH (22:02)
[2016-11-25] MEDS ORDERED: Ondansetron 4 MG/2 ML SDV IVPUSH PRN (22:30)
[2016-11-26] MEDS: Albuterol/Ipratropium 3.0-0.5 MG/3 ML Neb Soln NEB SCH ×3 (02:00→11:35)
[2016-11-26] MEDS: HYDROmorphone 1 MG/ML Syringe IV PRN ×2 (02:23→10:01)
[2016-11-26 03:20] LABS: CHLORIDE,CL 105 mmol/L (98-110); SODIUM,NA 142 mmol/L (136-146)
[2016-11-26] MEDS: Pantoprazole 40 MG Tab.CR PO SCH (06:36)
[2016-11-26] MEDS: HYDROmorphone 2 MG Tab PO PRN ×2 (06:36→13:59)
[2016-11-26] MEDS ORDERED: BUDESONIDE INH SCH (09:00)
[2016-11-26] MEDS ORDERED: FORMOTEROL INH SCH (09:00)
[2016-11-26] MEDS: ARIPiprazole 10 MG Tab PO SCH (10:08)
[2016-11-26] MEDS: Docusate Sodium 100 MG Cap PO SCH (10:10)
[2016-11-26] MEDS: carBAMazepine 200 MG Tab PO SCH (10:10)
[2016-11-26 11:22] VITALS: BP 138/76
--- NOTE | 2016-11-26 11:26 | PCM.CONSN ---
<Judith Kowalski - Last Filed: 11/26/16 13:36> - General Info Date of Service: 11/26/16 Subjective Update: NO SOB. on NC 2 liter oxygen saturation 91% Functional Status: Reports: Pain Controlled, Tolerating Diet, Ambulating - Review of Systems General: Reports: No Symptoms HEENT: Reports: No Symptoms Pulmonary: Reports: No Symptoms Cardiovascular: Reports: No Symptoms Gastrointestinal: Reports: No Symptoms Genitourinary: Reports: No Symptoms Musculoskeletal: Reports: No Symptoms Skin: Reports: No Symptoms Neurological: Reports: No Symptoms Psychiatric: Reports: No Symptoms - Patient Data Vitals - Most Recent: Last Vital Signs Temp 98.3 F 11/26/16 08:00 Pulse 70 11/26/16 11:20 Resp 20 11/26/16 08:00 BP 138/76 11/26/16 11:20 Pulse Ox 91 L 11/26/16 08:00 Weight - Most Recent: 121.5 kg I&O - Last 24 Hours: Intake & Output 11/25/16 11/26/16 11/26/16 22:59 06:59 14:59 Intake Total 960 600 Output Total 880 2300 Balance 80 -1700 Lab Results Last 24 Hours: Laboratory Results - last 24 hr 11/25/16 11/25/16 11/26/16 Range/Units 15:08 20:56 02:50 WBC 13.02 H (4.0-11.0) K/uL RBC 4.35 L (4.50-5.90) M/uL Hgb 13.4 (13.0-17.0) g/dL Hct 41.0 (38.0-50.0) % MCV 94.3 (80.0-98.0) fL MCH 30.8 (27.0-32.0) pg MCHC 32.7 (31.0-37.0) g/dL RDW Std Deviation 48.5 (28.0-62.0) fl RDW Coeff of Jalen 14 (11.0-15.0) % Plt Count 187 (150-400) K/uL MPV 9.90 (7.40-12.00) fL Neut % (Auto) 71.4 (48.0-80.0) % Lymph % (Auto) 16.0 (16.0-40.0) % Bent % (Auto) 12.1 (0.0-15.0) % Eos % (Auto) 0.3 (0.0-7.0) % Baso % (Auto) 0.2 (0.0-1.5) % Neut # (Auto) 9.3 H (1.4-5.7) K/uL Lymph # (Auto) 2.1 (0.6-2.4) K/uL Bent # (Auto) 1.6 H (0.0-0.8) K/uL Eos # (Auto) 0.0 (0.0-0.7) K/uL Baso # (Auto) 0.0 (0.0-0.1) K/uL Nucleated RBC % 0.0 /100WBC Nucleated RBCs # 0 K/uL Sodium (136-146) mmol/L Potassium (3.5-5.1) mmol/L Chloride (98-110) mmol/L Carbon Dioxide (21-31) mmol/L BUN (6.0-23.0) mg/dL Creatinine (0.6-1.5) mg/dL Est Cr Clr Drug Dosing mL/min Estimated GFR (MDRD) ml/min Glucose (60-110) mg/dL Calcium (8.8-10.8) mg/dL Troponin I < 0.10 < 0.10 (0.0-0.29) NG/ML 11/26/16 11/26/16 Range/Units 02:50 02:50 WBC (4.0-11.0) K/uL RBC (4.50-5.90) M/uL Hgb (13.0-17.0) g/dL Hct (38.0-50.0) % MCV (80.0-98.0) fL MCH (27.0-32.0) pg MCHC (31.0-37.0) g/dL RDW Std Deviation (28.0-62.0) fl RDW Coeff of Jalen (11.0-15.0) % Plt Count (150-400) K/uL MPV (7.40-12.00) fL Neut % (Auto) (48.0-80.0) % Lymph % (Auto) (16.0-40.0) % Bent % (Auto) (0.0-15.0) % Eos % (Auto) (0.0-7.0) % Baso % (Auto) (0.0-1.5) % Neut # (Auto) (1.4-5.7) K/uL Lymph # (Auto) (0.6-2.4) K/uL Bent # (Auto) (0.0-0.8) K/uL Eos # (Auto) (0.0-0.7) K/uL Baso # (Auto) (0.0-0.1) K/uL Nucleated RBC % /100WBC Nucleated RBCs # K/uL Sodium 142 (136-146) mmol/L Potassium 4.1 (3.5-5.1) mmol/L Chloride 105 (98-110) mmol/L Carbon Dioxide 27 (21-31) mmol/L BUN 11 (6.0-23.0) mg/dL Creatinine 0.8 (0.6-1.5) mg/dL Est Cr Clr Drug Dosing 107.27 mL/min Estimated GFR (MDRD) > 60.0 ml/min Glucose 109 (60-110) mg/dL Calcium 8.7 L (8.8-10.8) mg/dL Troponin I < 0.10 (0.0-0.29) NG/ML Med Orders - Current: Current Medications Albuterol/Ipratropium (Duoneb 3.0-0.5 Mg/3 Ml) 3 ml NEB Q4HRRT PRN PRN Reason: Shortness of Breath Albuterol/Ipratropium (Duoneb 3.0-0.5 Mg/3 Ml) 3 ml NEB Q4HRRT [facility] Last Admin: 11/26/16 06:40 Dose: 3 ml Aripiprazole (Abilify) 15 mg PO DAILY [facility] Last Admin: 11/26/16 10:08 Dose: 15 mg Carbamazepine (Tegretol Tab) 200 mg PO BID [facility] Last Admin: 11/26/16 10:10 Dose: 200 mg Docusate Sodium (Colace) 100 mg PO DAILY [facility] Last Admin: 11/26/16 10:10 Dose: 100 mg Hydromorphone HCl (Dilaudid) 1 mg IV Q2H PRN PRN Reason: PAIN Last Admin: 11/26/16 10:01 Dose: 1 mg Hydromorphone HCl (Dilaudid) 2 mg PO Q6H PRN PRN Reason: Pain Last Admin: 11/26/16 06:36 Dose: 2 mg Nicotine (Habitrol) 21 mg TRDERM Q24H ANGELICA Last Admin: 11/25/16 14:33 Dose: 21 mg Ondansetron HCl (Zofran) 4 mg IVPUSH Q8H PRN PRN Reason: Nausea/Vomiting Last Admin: 11/25/16 23:43 Dose: 4 mg Pantoprazole Sodium (Protonix) 40 mg PO ACBREAKFAST [facility] Last Admin: 11/26/16 06:36 Dose: 40 mg Symbicort 80-4.5mcg (Inhlaer) 0 each INH BID ANGELICA Last Admin: 11/26/16 10:00 Dose: Not Given Scopolamine (Transderm-Scop) 1.5 mg TRDERM Q72H PRN PRN Reason: Nausea Last Admin: 11/24/16 08:39 Dose: 1.5 mg Trazodone HCl (Trazodone) 300 mg PO BEDTIME [facility] Last Admin: 11/25/16 22:02 Dose: 300 mg Discontinued Medications Albuterol/Ipratropium (Duoneb 3.0-0.5 Mg/3 Ml) 3 ml NEB ONETIME ONE Stop: 11/24/16 08:31 Last Admin: 11/24/16 08:46 Dose: 3 ml Albuterol/Ipratropium (Duoneb 3.0-0.5 Mg/3 Ml) 3 ml NEB ONETIME ONE Stop: 11/24/16 12:54 Last Admin: 11/24/16 13:04 Dose: 3 ml Bupivacaine HCl/Epinephrine Bitart (Marcaine 0.25%/Epinephrine 1:200,000) Confirm Administered Dose 20 ml .ROUTE .STK-MED ONE Stop: 11/24/16 07:21 Bupivacaine HCl/Epinephrine Bitart (Marcaine 0.25%/Epinephrine 1:200,000) Confirm Administered Dose 10 ml .ROUTE .STK-MED ONE Stop: 11/24/16 09:07 Cefazolin Sodium (Ancef) Confirm Administered Dose 2 gm .ROUTE .STK-MED ONE Stop: 11/24/16 09:24 Dexamethasone (Dexamethasone) Confirm Administered Dose 20 mg .ROUTE .STK-MED ONE Stop: 11/24/16 08:16 Diazepam (Valium) 2 mg PO ONETIME ONE Stop: 11/24/16 19:19 Last Admin: 11/24/16 20:12 Dose: 2 mg Diazepam (Valium) 2 mg PO ONETIME ONE Stop: 11/25/16 00:14 Last Admin: 11/25/16 00:24 Dose: 2 mg Fentanyl (Sublimaze) Confirm Administered Dose 250 mcg .ROUTE .STK-MED ONE Stop: 11/24/16 08:16 Fentanyl (Sublimaze) 50 mcg IVPUSH SEECOMMENT PRN PRN Reason: Pain (moderate 4-6) Last Admin: 11/24/16 13:30 Dose: 50 mcg Furosemide (Lasix) 40 mg IVPUSH NOW ONE Stop: 11/25/16 14:47 Last Admin: 11/25/16 15:30 Dose: 40 mg Hydromorphone HCl (Dilaudid) Confirm Administered Dose 2 mg .ROUTE .STK-MED ONE Stop: 11/24/16 08:16 Hydromorphone HCl (Dilaudid) 1 mg PO Q6H PRN PRN Reason: Pain Last Admin: 11/25/16 04:14 Dose: 1 mg Hydromorphone HCl (Dilaudid) 4 mg PO Q6H PRN PRN Reason: Pain Lactated Ringer's (Ringers, Lactated) 1,000 mls @ 125 mls/hr IV ASDIRECTED [facility] Last Infusion: 11/24/16 19:24 Dose: Infused Cefazolin Sodium/Dextrose 2 gm (/ Premix) 50 mls @ 100 mls/hr IV ONETIME ONE Stop: 11/24/16 05:29 Last Admin: 11/24/16 15:44 Dose: Not Given Lactated Ringer's (Ringers, Lactated) 1,000 mls @ 75 mls/hr IV ASDIRECTED [facility] Last Admin: 11/25/16 10:48 Dose: 75 mls/hr Iopamidol (Isovue Multipack-370 (76%)) 100 ml IVPUSH ONETIME STA Stop: 11/25/16 10:16 Last Admin: 11/25/16 10:20 Dose: 100 ml Lidocaine (Xylocaine-Mpf 2%) Confirm Administered Dose 5 ml .ROUTE .STK-MED ONE Stop: 11/24/16 08:16 Midazolam HCl (Versed 1 Mg/Ml) Confirm Administered Dose 2 mg .ROUTE .STK-MED ONE Stop: 11/24/16 08:16 Morphine Sulfate (Morphine) 3 mg IV Q4H PRN PRN Reason: Breakthrough Pain Last Admin: 11/25/16 08:13 Dose: 3 mg Octyl Cyanoacrylate (Dermabond Advance) Confirm Administered Dose 1 applic .ROUTE .STK-MED ONE Stop: 11/24/16 12:06 Octyl Cyanoacrylate (Dermabond Advance) Confirm Administered Dose 1 applic .ROUTE .STK-MED ONE Stop: 11/24/16 12:17 Ondansetron HCl (Zofran) Confirm Administered Dose 4 mg .ROUTE .STK-MED ONE Stop: 11/24/16 08:16 Oxycodone/Acetaminophen (Percocet 325-10 Mg) 1 tab PO ONETIME ONE Stop: 11/24/16 09:26 Last Admin: 11/24/16 15:44 Dose: Not Given Oxycodone/Acetaminophen (Percocet 325-5 Mg) 1 tab PO Q6H PRN PRN Reason: Pain Last Admin: 11/24/16 15:46 Dose: 1 tab Propofol (Diprivan 20 Ml) Confirm Administered Dose 200 mg .ROUTE .STK-MED ONE Stop: 11/24/16 08:16 Rocuronium Thompson (Zemuron) Confirm Administered Dose 50 mg .ROUTE .STK-MED ONE Stop: 11/24/16 08:16 Rocuronium Thompson (Zemuron) Confirm Administered Dose 50 mg .ROUTE .STK-MED ONE Stop: 11/24/16 09:53 - Exam General: Alert, Oriented HEENT: Pupils Equal, EOMI Neck: Supple, Trachea Midline Lungs: Clear to Auscultation, Normal Respiratory Effort Cardiovascular: Regular Rate, Regular Rhythm GI/Abdominal Exam: Normal Bowel Sounds, Soft Extremities: Normal Inspection Skin: Warm, Dry Neurological: No New Focal Deficit Psy/Mental Status: Alert, Normal Affect, Normal Mood Consult PN Assessment/Plan Procedures: Procedures ASSAY OF AMYLASE (11/16/16) ASSAY OF LIPASE (11/16/16) CHEST X-RAY 1 VIEW FRONTAL (09/27/16) COMPLETE CBC W/AUTO DIFF WBC (11/16/16) COMPREHEN METABOLIC PANEL (11/16/16) CT ABD & PELVIS W/O CONTRAST (11/19/16) ECHO EXAM OF ABDOMEN (10/28/16) EMERGENCY DEPT VISIT (10/20/16) EMERGENCY DEPT VISIT (10/19/16) EMERGENCY DEPT VISIT (09/27/16) HEPATITIS BE ANTIBODY (10/28/16) HEPATITIS C AB TEST (10/28/16) HEPATITIS C REVRS TRNSCRPJ (11/09/16) LIPID PANEL (10/28/16) ROUTINE VENIPUNCTURE (11/16/16) X-RAY EXAM OF ABDOMEN (09/27/16) X-RAY EXAM UNILAT RIBS/CHEST (10/20/16) Problem List Initiated/Reviewed/Updated: Yes Plan: 51 yo male s/p cholecystectomy consulted for hypoxia most likely multifactorial including fluids from surgery, copd, pulmonary HTN. He is improving today. Another dose of IV lasix 40 mg given x1 before discharge. He is ready to quit smoking. He is maintaining >90% in room air. He is to follow up PCP <Andre Venegas - Last Filed: 11/27/16 15:02> - Patient Data Vitals - Most Recent: Last Vital Signs Temp 36.8 C 11/26/16 08:00 Pulse 70 11/26/16 11:20 Resp 20 11/26/16 08:00 BP 138/76 11/26/16 11:20 Pulse Ox 91 L 11/26/16 08:00 Med Orders - Current: Current Medications Discontinued Medications Albuterol/Ipratropium (Duoneb 3.0-0.5 Mg/3 Ml) 3 ml NEB ONETIME ONE Stop: 11/24/16 08:31 Last Admin: 11/24/16 08:46 Dose: 3 ml Albuterol/Ipratropium (Duoneb 3.0-0.5 Mg/3 Ml) 3 ml NEB ONETIME ONE Stop: 11/24/16 12:54 Last Admin: 11/24/16 13:04 Dose: 3 ml Albuterol/Ipratropium (Duoneb 3.0-0.5 Mg/3 Ml) 3 ml NEB Q4HRRT PRN PRN Reason: Shortness of Breath Albuterol/Ipratropium (Duoneb 3.0-0.5 Mg/3 Ml) 3 ml NEB Q4HRRT [facility] Last Admin: 11/26/16 11:35 Dose: 3 ml Aripiprazole (Abilify) 15 mg PO DAILY [facility] Last Admin: 11/26/16 10:08 Dose: 15 mg Bupivacaine HCl/Epinephrine Bitart (Marcaine 0.25%/Epinephrine 1:200,000) Confirm Administered Dose 20 ml .ROUTE .STK-MED ONE Stop: 11/24/16 07:21 Bupivacaine HCl/Epinephrine Bitart (Marcaine 0.25%/Epinephrine 1:200,000) Confirm Administered Dose 10 ml .ROUTE .STK-MED ONE Stop: 11/24/16 09:07 Carbamazepine (Tegretol Tab) 200 mg PO BID [facility] Last Admin: 11/26/16 10:10 Dose: 200 mg Cefazolin Sodium (Ancef) Confirm Administered Dose 2 gm .ROUTE .STK-MED ONE Stop: 11/24/16 09:24 Dexamethasone (Dexamethasone) Confirm Administered Dose 20 mg .ROUTE .STK-MED ONE Stop: 11/24/16 08:16 Diazepam (Valium) 2 mg PO ONETIME ONE Stop: 11/24/16 19:19 Last Admin: 11/24/16 20:12 Dose: 2 mg Diazepam (Valium) 2 mg PO ONETIME ONE Stop: 11/25/16 00:14 Last Admin: 11/25/16 00:24 Dose: 2 mg Docusate Sodium (Colace) 100 mg PO DAILY [facility] Last Admin: 11/26/16 10:10 Dose: 100 mg Fentanyl (Sublimaze) Confirm Administered Dose 250 mcg .ROUTE .STK-MED ONE Stop: 11/24/16 08:16 Fentanyl (Sublimaze) 50 mcg IVPUSH SEECOMMENT PRN PRN Reason: Pain (moderate 4-6) Last Admin: 11/24/16 13:30 Dose: 50 mcg Furosemide (Lasix) 40 mg IVPUSH NOW ONE Stop: 11/25/16 14:47 Last Admin: 11/25/16 15:30 Dose: 40 mg Furosemide (Lasix) 40 mg PO ONETIME ONE Stop: 11/26/16 11:48 Last Admin: 11/26/16 12:40 Dose: 40 mg Hydromorphone HCl (Dilaudid) Confirm Administered Dose 2 mg .ROUTE .STK-MED ONE Stop: 11/24/16 08:16 Hydromorphone HCl (Dilaudid) 1 mg PO Q6H PRN PRN Reason: Pain Last Admin: 11/25/16 04:14 Dose: 1 mg Hydromorphone HCl (Dilaudid) 4 mg PO Q6H PRN PRN Reason: Pain Hydromorphone HCl (Dilaudid) 1 mg IV Q2H PRN PRN Reason: PAIN Last Admin: 11/26/16 10:01 Dose: 1 mg Hydromorphone HCl (Dilaudid) 2 mg PO Q6H PRN PRN Reason: Pain Last Admin: 11/26/16 13:59 Dose: 2 mg Lactated Ringer's (Ringers, Lactated) 1,000 mls @ 125 mls/hr IV ASDIRECTED [facility] Last Infusion: 11/24/16 19:24 Dose: Infused Cefazolin Sodium/Dextrose 2 gm (/ Premix) 50 mls @ 100 mls/hr IV ONETIME ONE Stop: 11/24/16 05:29 Last Admin: 11/24/16 15:44 Dose: Not Given Lactated Ringer's (Ringers, Lactated) 1,000 mls @ 75 mls/hr IV ASDIRECTED [facility] Last Admin: 11/25/16 10:48 Dose: 75 mls/hr Iopamidol (Isovue Multipack-370 (76%)) 100 ml IVPUSH ONETIME STA Stop: 11/25/16 10:16 Last Admin: 11/25/16 10:20 Dose: 100 ml Lidocaine (Xylocaine-Mpf 2%) Confirm Administered Dose 5 ml .ROUTE .STK-MED ONE Stop: 11/24/16 08:16 Midazolam HCl (Versed 1 Mg/Ml) Confirm Administered Dose 2 mg .ROUTE .STK-MED ONE Stop: 11/24/16 08:16 Morphine Sulfate (Morphine) 3 mg IV Q4H PRN PRN Reason: Breakthrough Pain Last Admin: 11/25/16 08:13 Dose: 3 mg Nicotine (Habitrol) 21 mg TRDERM Q24H [facility] Last Admin: 11/26/16 12:40 Dose: Not Given Octyl Cyanoacrylate (Dermabond Advance) Confirm Administered Dose 1 applic .ROUTE .STK-MED ONE Stop: 11/24/16 12:06 Octyl Cyanoacrylate (Dermabond Advance) Confirm Administered Dose 1 applic .ROUTE .STK-MED ONE Stop: 11/24/16 12:17 Ondansetron HCl (Zofran) Confirm Administered Dose 4 mg .ROUTE .STK-MED ONE Stop: 11/24/16 08:16 Ondansetron HCl (Zofran) 4 mg IVPUSH Q8H PRN PRN Reason: Nausea/Vomiting Last Admin: 11/25/16 23:43 Dose: 4 mg Oxycodone/Acetaminophen (Percocet 325-10 Mg) 1 tab PO ONETIME ONE Stop: 11/24/16 09:26 Last Admin: 11/24/16 15:44 Dose: Not Given Oxycodone/Acetaminophen (Percocet 325-5 Mg) 1 tab PO Q6H PRN PRN Reason: Pain Last Admin: 11/24/16 15:46 Dose: 1 tab Pantoprazole Sodium (Protonix) 40 mg PO ACBREAKFAST ANGELICA Last Admin: 11/26/16 06:36 Dose: 40 mg Symbicort 80-4.5mcg (Inhlaer) 0 each INH BID ANGELICA Last Admin: 11/26/16 10:00 Dose: Not Given Propofol (Diprivan 20 Ml) Confirm Administered Dose 200 mg .ROUTE .STK-MED ONE Stop: 11/24/16 08:16 Rocuronium Thompson (Zemuron) Confirm Administered Dose 50 mg .ROUTE .STK-MED ONE Stop: 11/24/16 08:16 Rocuronium Thompson (Zemuron) Confirm Administered Dose 50 mg .ROUTE .STK-MED ONE Stop: 11/24/16 09:53 Scopolamine (Transderm-Scop) 1.5 mg TRDERM Q72H PRN PRN Reason: Nausea Last Admin: 11/24/16 08:39 Dose: 1.5 mg Trazodone HCl (Trazodone) 300 mg PO BEDTIME ANGELICA Last Admin: 11/25/16 22:02 Dose: 300 mg Consult PN Assessment/Plan Procedures: Procedures ASSAY OF AMYLASE (11/16/16) ASSAY OF LIPASE (11/16/16) CHEST X-RAY 1 VIEW FRONTAL (09/27/16) COMPLETE CBC W/AUTO DIFF WBC (11/16/16) COMPREHEN METABOLIC PANEL (11/16/16) CT ABD & PELVIS W/O CONTRAST (11/19/16) ECHO EXAM OF ABDOMEN (10/28/16) EMERGENCY DEPT VISIT (10/20/16) EMERGENCY DEPT VISIT (10/19/16) EMERGENCY DEPT VISIT (09/27/16) HEPATITIS BE ANTIBODY (10/28/16) HEPATITIS C AB TEST (10/28/16) HEPATITIS C REVRS TRNSCRPJ (11/09/16) LIPID PANEL (10/28/16) ROUTINE VENIPUNCTURE (11/16/16) X-RAY EXAM OF ABDOMEN (09/27/16) X-RAY EXAM UNILAT RIBS/CHEST (10/20/16) - Free Text/Narrative Note: I have examined the patient. I have discussed findings and treatment plan with resident. I agree with the assessment and plan outlined in the resident's note.
[2016-11-26] MEDS ORDERED: Furosemide 40 MG Tab PO ONE (11:47)
[2016-11-26] MEDS: Nicotine 21 MG/24 Hr Patch TRDERM SCH (12:40)
--- NOTE | 2016-11-26 13:33 | PCM.DCSUM1 ---
Discharge Summary - Hospital Course Free Text/Narrative:: pt admitted postop from same day surgery s/p lap saray; admitted for respiratory distress - Discharge Data Discharge Date: 11/26/16 Discharge Disposition: Home, Self-Care 01 Condition: Good - Patient Summary/Data Operative Procedure(s) Performed: lap cholecystectomy Consults: Consultations 11/25/16 11:46 Consult to Physician [CONS] Routine Hospital Course: pt came in same day surgery; postop has respiratory distress, and was admitted to icu; icu course uneventful, but pt then remarked, he was having breathing difficulty throughout the week, feeling lack of energy, and B lower leg edema. Pt mentioned that he noticed X 1 wk, and wish it would go away; hospitalist was consulted, bailon PE and CHF; apparantly both were negative; and pt is getting much better now; breathing good, edema lower leg improved, and good appetite; pt was dced home on abd binder, and pain meds and fu apptment - Patient Instructions Diet: Regular Diet as Tolerated Diet, Other: avoid greasy food X 3 wks Feeding Instructions: avoid greasy food X 3 wks Activity: No Lifting Over 10 Pounds, No Strenuous Activities Driving: Do Not Drive Showering/Bathing: May Shower in 3 Days Wound/Incision Care: Keep Operative Site/Wound Site Clean and Dry Notify Provider of: Fever, Drainage, Nausea and/or Vomiting - Discharge Plan Prescriptions/Med Rec: Nicotine [Habitrol] 21 mg TRDERM Q24H #7 patch Home Medications: Home Meds ALPRAZolam [Xanax] 1 mg PO TID 09/28/16 [History] carBAMazepine [Tegretol] 200 mg PO BID 09/28/16 [History] Albuterol Sulfate [Ventolin Hfa] 1 dose INH ASDIRECTED PRN 10/19/16 [History] traZODone HCl [Trazodone HCl] 300 mg PO BEDTIME 10/19/16 [History] ARIPiprazole [Abilify] 15 mg PO DAILY 11/24/16 [History] Pantoprazole [ProTONIX] 40 mg PO ACBREAKFAST 11/24/16 [History] Nicotine [Habitrol] 21 mg TRDERM Q24H #7 patch 11/26/16 [Rx] Patient's Own Medication [Ptom] 0 each INH BID each 11/26/16 [Rx] Patient Handouts: Acetaminophen; Oxycodone capsules, Laparoscopic Cholecystectomy, Care After, [id number], Cephalexin tablets or capsules, Nicotine skin patches, Docusate capsules Referrals: [facility] [Outside] Ponce Mendez DO [Primary Care Provider] - 12/01/16 1:30 pm Pepe Arriaza MD [Physician] - 12/09/16 9:30 am - Discharge Summary/Plan Comment DC Time >30 min.: Yes - Patient Data Vitals - Most Recent: Last Vital Signs Temp 98.3 F 11/26/16 08:00 Pulse 70 11/26/16 11:20 Resp 20 11/26/16 08:00 BP 138/76 11/26/16 11:20 Pulse Ox 91 L 11/26/16 08:00 Weight - Most Recent: 267 lb 13.786 oz I&O - Last 24 hours: Intake & Output 11/25/16 11/26/16 11/26/16 22:59 06:59 14:59 Intake Total 960 600 Output Total 880 2300 Balance 80 -1700 Lab Results - Last 24 hrs: Laboratory Results - last 24 hr 11/25/16 11/25/16 11/26/16 Range/Units 15:08 20:56 02:50 WBC 13.02 H (4.0-11.0) K/uL RBC 4.35 L (4.50-5.90) M/uL Hgb 13.4 (13.0-17.0) g/dL Hct 41.0 (38.0-50.0) % MCV 94.3 (80.0-98.0) fL MCH 30.8 (27.0-32.0) pg MCHC 32.7 (31.0-37.0) g/dL RDW Std Deviation 48.5 (28.0-62.0) fl RDW Coeff of Jalen 14 (11.0-15.0) % Plt Count 187 (150-400) K/uL MPV 9.90 (7.40-12.00) fL Neut % (Auto) 71.4 (48.0-80.0) % Lymph % (Auto) 16.0 (16.0-40.0) % [place] % (Auto) 12.1 (0.0-15.0) % Eos % (Auto) 0.3 (0.0-7.0) % Baso % (Auto) 0.2 (0.0-1.5) % Neut # (Auto) 9.3 H (1.4-5.7) K/uL Lymph # (Auto) 2.1 (0.6-2.4) K/uL [place] # (Auto) 1.6 H (0.0-0.8) K/uL Eos # (Auto) 0.0 (0.0-0.7) K/uL Baso # (Auto) 0.0 (0.0-0.1) K/uL Nucleated RBC % 0.0 /100WBC Nucleated RBCs # 0 K/uL Sodium (136-146) mmol/L Potassium (3.5-5.1) mmol/L Chloride (98-110) mmol/L Carbon Dioxide (21-31) mmol/L BUN (6.0-23.0) mg/dL Creatinine (0.6-1.5) mg/dL Est Cr Clr Drug Dosing mL/min Estimated GFR (MDRD) ml/min Glucose (60-110) mg/dL Calcium (8.8-10.8) mg/dL Troponin I < 0.10 < 0.10 (0.0-0.29) NG/ML 11/26/16 11/26/16 Range/Units 02:50 02:50 WBC (4.0-11.0) K/uL RBC (4.50-5.90) M/uL Hgb (13.0-17.0) g/dL Hct (38.0-50.0) % MCV (80.0-98.0) fL MCH (27.0-32.0) pg MCHC (31.0-37.0) g/dL RDW Std Deviation (28.0-62.0) fl RDW Coeff of Jalen (11.0-15.0) % Plt Count (150-400) K/uL MPV (7.40-12.00) fL Neut % (Auto) (48.0-80.0) % Lymph % (Auto) (16.0-40.0) % [place] % (Auto) (0.0-15.0) % Eos % (Auto) (0.0-7.0) % Baso % (Auto) (0.0-1.5) % Neut # (Auto) (1.4-5.7) K/uL Lymph # (Auto) (0.6-2.4) K/uL [place]mer # (Auto) (0.0-0.8) K/uL Eos # (Auto) (0.0-0.7) K/uL Baso # (Auto) (0.0-0.1) K/uL Nucleated RBC % /100WBC Nucleated RBCs # K/uL Sodium 142 (136-146) mmol/L Potassium 4.1 (3.5-5.1) mmol/L Chloride 105 (98-110) mmol/L Carbon Dioxide 27 (21-31) mmol/L BUN 11 (6.0-23.0) mg/dL Creatinine 0.8 (0.6-1.5) mg/dL Est Cr Clr Drug Dosing 107.27 mL/min Estimated GFR (MDRD) > 60.0 ml/min Glucose 109 (60-110) mg/dL Calcium 8.7 L (8.8-10.8) mg/dL Troponin I < 0.10 (0.0-0.29) NG/ML Med Orders - Current: Current Medications Albuterol/Ipratropium (Duoneb 3.0-0.5 Mg/3 Ml) 3 ml NEB Q4HRRT PRN PRN Reason: Shortness of Breath Albuterol/Ipratropium (Duoneb 3.0-0.5 Mg/3 Ml) 3 ml NEB Q4HRRT [facility] Last Admin: 11/26/16 11:35 Dose: 3 ml Aripiprazole (Abilify) 15 mg PO DAILY [facility] Last Admin: 11/26/16 10:08 Dose: 15 mg Carbamazepine (Tegretol Tab) 200 mg PO BID [facility] Last Admin: 11/26/16 10:10 Dose: 200 mg Docusate Sodium (Colace) 100 mg PO DAILY [facility] Last Admin: 11/26/16 10:10 Dose: 100 mg Hydromorphone HCl (Dilaudid) 1 mg IV Q2H PRN PRN Reason: PAIN Last Admin: 11/26/16 10:01 Dose: 1 mg Hydromorphone HCl (Dilaudid) 2 mg PO Q6H PRN PRN Reason: Pain Last Admin: 11/26/16 06:36 Dose: 2 mg Nicotine (Habitrol) 21 mg TRDERM Q24H ANGELICA Last Admin: 11/26/16 12:40 Dose: Not Given Ondansetron HCl (Zofran) 4 mg IVPUSH Q8H PRN PRN Reason: Nausea/Vomiting Last Admin: 11/25/16 23:43 Dose: 4 mg Pantoprazole Sodium (Protonix) 40 mg PO ACBREAKFAST ANGELICA Last Admin: 11/26/16 06:36 Dose: 40 mg Symbicort 80-4.5mcg (Inhlaer) 0 each INH BID ANGELICA Last Admin: 11/26/16 10:00 Dose: Not Given Scopolamine (Transderm-Scop) 1.5 mg TRDERM Q72H PRN PRN Reason: Nausea Last Admin: 11/24/16 08:39 Dose: 1.5 mg Trazodone HCl (Trazodone) 300 mg PO BEDTIME [facility] Last Admin: 11/25/16 22:02 Dose: 300 mg Discontinued Medications Albuterol/Ipratropium (Duoneb 3.0-0.5 Mg/3 Ml) 3 ml NEB ONETIME ONE Stop: 11/24/16 08:31 Last Admin: 11/24/16 08:46 Dose: 3 ml Albuterol/Ipratropium (Duoneb 3.0-0.5 Mg/3 Ml) 3 ml NEB ONETIME ONE Stop: 11/24/16 12:54 Last Admin: 11/24/16 13:04 Dose: 3 ml Bupivacaine HCl/Epinephrine Bitart (Marcaine 0.25%/Epinephrine 1:200,000) Confirm Administered Dose 20 ml .ROUTE .STK-MED ONE Stop: 11/24/16 07:21 Bupivacaine HCl/Epinephrine Bitart (Marcaine 0.25%/Epinephrine 1:200,000) Confirm Administered Dose 10 ml .ROUTE .STK-MED ONE Stop: 11/24/16 09:07 Cefazolin Sodium (Ancef) Confirm Administered Dose 2 gm .ROUTE .STK-MED ONE Stop: 11/24/16 09:24 Dexamethasone (Dexamethasone) Confirm Administered Dose 20 mg .ROUTE .STK-MED ONE Stop: 11/24/16 08:16 Diazepam (Valium) 2 mg PO ONETIME ONE Stop: 11/24/16 19:19 Last Admin: 11/24/16 20:12 Dose: 2 mg Diazepam (Valium) 2 mg PO ONETIME ONE Stop: 11/25/16 00:14 Last Admin: 11/25/16 00:24 Dose: 2 mg Fentanyl (Sublimaze) Confirm Administered Dose 250 mcg .ROUTE .STK-MED ONE Stop: 11/24/16 08:16 Fentanyl (Sublimaze) 50 mcg IVPUSH SEECOMMENT PRN PRN Reason: Pain (moderate 4-6) Last Admin: 11/24/16 13:30 Dose: 50 mcg Furosemide (Lasix) 40 mg IVPUSH NOW ONE Stop: 11/25/16 14:47 Last Admin: 11/25/16 15:30 Dose: 40 mg Furosemide (Lasix) 40 mg PO ONETIME ONE Stop: 11/26/16 11:48 Last Admin: 11/26/16 12:40 Dose: 40 mg Hydromorphone HCl (Dilaudid) Confirm Administered Dose 2 mg .ROUTE .STK-MED ONE Stop: 11/24/16 08:16 Hydromorphone HCl (Dilaudid) 1 mg PO Q6H PRN PRN Reason: Pain Last Admin: 11/25/16 04:14 Dose: 1 mg Hydromorphone HCl (Dilaudid) 4 mg PO Q6H PRN PRN Reason: Pain Lactated Ringer's (Ringers, Lactated) 1,000 mls @ 125 mls/hr IV ASDIRECTED [facility] Last Infusion: 11/24/16 19:24 Dose: Infused Cefazolin Sodium/Dextrose 2 gm (/ Premix) 50 mls @ 100 mls/hr IV ONETIME ONE Stop: 11/24/16 05:29 Last Admin: 11/24/16 15:44 Dose: Not Given Lactated Ringer's (Ringers, Lactated) 1,000 mls @ 75 mls/hr IV ASDIRECTED [facility] Last Admin: 11/25/16 10:48 Dose: 75 mls/hr Iopamidol (Isovue Multipack-370 (76%)) 100 ml IVPUSH ONETIME STA Stop: 11/25/16 10:16 Last Admin: 11/25/16 10:20 Dose: 100 ml Lidocaine (Xylocaine-Mpf 2%) Confirm Administered Dose 5 ml .ROUTE .STK-MED ONE Stop: 11/24/16 08:16 Midazolam HCl (Versed 1 Mg/Ml) Confirm Administered Dose 2 mg .ROUTE .STK-MED ONE Stop: 11/24/16 08:16 Morphine Sulfate (Morphine) 3 mg IV Q4H PRN PRN Reason: Breakthrough Pain Last Admin: 11/25/16 08:13 Dose: 3 mg Octyl Cyanoacrylate (Dermabond Advance) Confirm Administered Dose 1 applic .ROUTE .STK-MED ONE Stop: 11/24/16 12:06 Octyl Cyanoacrylate (Dermabond Advance) Confirm Administered Dose 1 applic .ROUTE .STK-MED ONE Stop: 11/24/16 12:17 Ondansetron HCl (Zofran) Confirm Administered Dose 4 mg .ROUTE .STK-MED ONE Stop: 11/24/16 08:16 Oxycodone/Acetaminophen (Percocet 325-10 Mg) 1 tab PO ONETIME ONE Stop: 11/24/16 09:26 Last Admin: 11/24/16 15:44 Dose: Not Given Oxycodone/Acetaminophen (Percocet 325-5 Mg) 1 tab PO Q6H PRN PRN Reason: Pain Last Admin: 11/24/16 15:46 Dose: 1 tab Propofol (Diprivan 20 Ml) Confirm Administered Dose 200 mg .ROUTE .STK-MED ONE Stop: 11/24/16 08:16 Rocuronium [place] (Zemuron) Confirm Administered Dose 50 mg .ROUTE .STK-MED ONE Stop: 11/24/16 08:16 Rocuronium [place] (Zemuron) Confirm Administered Dose 50 mg .ROUTE .STK-MED ONE Stop: 11/24/16 09:53 *Q Meaningful Use (DIS) - VTE *Q VTE Criteria *Q: - Stroke *Q Stroke Criteria *Q: - AMI *Q AMI Criteria *Q:
--- NOTE | 2016-11-30 15:17 | ECHO ---
EXAM DATE: 11/24/16 PATIENT'S AGE: 51 The echocardiogram report can be seen in this patient's EMR (Electronic Medical Record) in the Reports section. The report has also been scanned into PACS. CAROL
== END 2016-11-26 14:00 | disposition home or self-care (01) ==
LOC: MW.SDS 07:42 → MW.ICU 12:30 → MW.MS 11-25 14:22
PROVIDERS: ADMIT Surgery; ATTEND Surgery
PROC: 0FT44ZZ Resection of Gallbladder, Percutaneous Endoscopic Approach (ICD-10-PCS; principal; 2016-11-24)
DX: K80.10 Calculus of gallbladder with chronic cholecystitis without obstruction (principal); F31.9 Bipolar disorder, unspecified; E66.9 Obesity, unspecified; F17.200 Nicotine dependence, unspecified, uncomplicated; K52.9 Noninfective gastroenteritis and colitis, unspecified; Z88.2 Allergy status to sulfonamides; Z79.899 Other long term (current) drug therapy; Z98.890 Other specified postprocedural states
CPT/HCPCS: 36415; 47562; 71275; 80048; 83880; 84484; 85025; 88304; 93306; 94640; 94660; 94664; A9270; G0378; J0690; J1100; J1170; J1940; J2250; J2270; J2405; J3010; J7120; Q9967; 00790; J2704

== ENCOUNTER 2016-12-22 15:45 | Emergency (ER) | payer BC, MEDICAID ==
[2016-12-22] MEDS ORDERED: Aspirin 81 MG Tab.Chew PO ONE (15:54)
--- NOTE | 2016-12-22 16:04 | EDM.PDOC ---
ED HPI GENERAL MEDICAL PROBLEM - General Stated Complaint: CHEST PAIN Time Seen by Provider: 12/22/16 16:02 Source of Information: Reports: Patient - History of Present Illness INITIAL COMMENTS - FREE TEXT/NARRATIVE: HISTORY AND PHYSICAL: History of present illness: [] Patient presents with history of chest pain from the clinic, apparently during triage he stated he had chest pain sent him directly to emergency room History has had ongoing chest pain over the last year, and recently had gallbladder surgery states his chest pain has worsened since then he rates 1 out of 10 today, some association with shortness of breath, he also relates he has a history of pulmonary hypertension and is scheduled to see the painter ski edge tomorrow. He is in no distress pain is not associated with shortness of breath or diaphoresis no radiation arm neck or jaw No fever nausea vomiting chills sweats no headache dizziness palpitation no bowel or urine symptoms Review of systems: As per history of present illness and below otherwise all systems reviewed and negative. Past medical history: As per history of present illness and as reviewed below otherwise noncontributory. Surgical history: As per history of present illness and as reviewed below otherwise noncontributory. Social history: No reported history of drug or alcohol abuse. Family history: As per history of present illness and as reviewed below otherwise noncontributory. Physical exam: HEENT: Atraumatic, normocephalic, pupils reactive, negative for conjunctival pallor or scleral icterus, mucous membranes moist, throat clear, neck supple, nontender, trachea midline. Lungs: Clear to auscultation, breath sounds equal bilaterally, chest nontender. Heart: S1S2, regular, negative for clicks, rubs, or JVD. Abdomen: Soft, nondistended, nontender. Negative for masses or hepatosplenomegaly. Negative for costovertebral tenderness. Pelvis: Stable nontender. Genitourinary: Deferred. Rectal: Deferred. Extremities: Atraumatic, negative for cords or calf pain. Neurovascular unremarkable. Neuro: Awake, alert, oriented. Cranial nerves II through XII unremarkable. Cerebellum unremarkable. Motor and sensory unremarkable throughout. Exam nonfocal. Diagnostics: []Lab as below EKG Chest 1 view Therapeutics: []Aspirin 324 mg chewable Follow-up with cardiology as scheduled tomorrow Impression: []Worried well Chronic history of baseline Definitive disposition and diagnosis as appropriate pending reevaluation and review of above. - Related Data Allergies Allergy/AdvReac Type Severity Reaction Status Date / Time Sulfa (Sulfonamide Allergy Hives Verified 10/20/16 07:39 Antibiotics) Home Meds: Home Meds ALPRAZolam [Xanax] 1 mg PO TID 09/28/16 [History] carBAMazepine [Tegretol] 200 mg PO BID 09/28/16 [History] Albuterol Sulfate [Ventolin Hfa] 1 dose INH ASDIRECTED PRN 10/19/16 [History] traZODone HCl [Trazodone HCl] 300 mg PO BEDTIME 10/19/16 [History] ARIPiprazole [Abilify] 15 mg PO DAILY 11/24/16 [History] Pantoprazole [ProTONIX] 40 mg PO ACBREAKFAST 11/24/16 [History] Nicotine [Habitrol] 21 mg TRDERM Q24H #7 patch 11/26/16 [Rx] Patient's Own Medication [Ptom] 0 each INH BID each 11/26/16 [Rx] Past Medical History HEENT History: Reports: None Cardiovascular History: Reports: None Respiratory History: Reports: Asthma, Bronchitis, Recurrent, PE, Pneumonia, Recurrent Other Respiratory History: no pneumonia or bronchitis for over a year, states PE in 2002 Gastrointestinal History: Reports: Colon Polyp, GERD, Hepatitis, Other (See Below) Other Gastrointestinal History: chronic cholecystitis,barretts esophagus, hx of hepatits C (has been treated), h/o colitis Genitourinary History: Reports: None Musculoskeletal History: Reports: None Neurological History: Reports: None Psychiatric History: Reports: Addiction, Anxiety, Bipolar, Depression Endocrine/Metabolic History: Reports: Obesity/BMI 30+, Other (See Below) Other Endocrine/Metabolic History: "lymphocytic colitis" Hematologic History: Reports: None Oncologic (Cancer) History: Reports: None Dermatologic History: Reports: Psoriasis - Infectious Disease History Infectious Disease History: Reports: Hepatitis C - Past Surgical History Head Surgeries/Procedures: Reports: None GI Surgical History: Reports: Colonoscopy, EGD, Hernia, Abdominal, Hernia Repair /Other Male Surgical History: Reports: None Musculoskeletal Surgical History: Reports: Shoulder Surgery Other Musculoskeletal Surgeries/Procedures:: left rotator cuff repair, rt heel surgery x3 with screws Social & Family History - Family History Family Medical History: Noncontributory - Tobacco Use Smoking Status *Q: Current Every Day Smoker (smoked 2 1/2 ppd, recently cut down to 1 ppd) Years of Tobacco use: 35 Packs/Tins Daily: 1 - Caffeine Use Caffeine Use: Reports: Coffee Caffeine Use Comment: Pt reports 4-5 glasses daily - Recreational Drug Use Recreational Drug Use: No ED ROS GENERAL - Review of Systems Review Of Systems: ROS reveals no pertinent complaints other than HPI. ED EXAM, GENERAL - Physical Exam Exam: See Below Course - Vital Signs Last Recorded V/S: Last Vital Signs Temp 36.2 C 12/22/16 15:56 Pulse 66 12/22/16 15:56 Resp 18 12/22/16 15:56 BP 153/89 H 12/22/16 15:56 Pulse Ox 94 L 12/22/16 15:56 - Orders/Labs/Meds Orders: Active Orders 24 hr Category Date Time Status Chest 1V Frontal [CR] Stat Exams 12/22/16 15:54 Taken Labs: Laboratory Tests 12/22/16 12/22/16 12/22/16 Range/Units 16:03 16:03 16:03 WBC 11.17 H (4.0-11.0) K/uL RBC 5.17 (4.50-5.90) M/uL Hgb 16.2 (13.0-17.0) g/dL Hct 46.9 (38.0-50.0) % MCV 90.7 (80.0-98.0) fL MCH 31.3 (27.0-32.0) pg MCHC 34.5 (31.0-37.0) g/dL RDW Std Deviation 43.9 (28.0-62.0) fl RDW Coeff of Jalen 13 (11.0-15.0) % Plt Count 220 (150-400) K/uL MPV 10.10 (7.40-12.00) fL Neut % (Auto) 64.0 (48.0-80.0) % Lymph % (Auto) 25.4 (16.0-40.0) % [place] % (Auto) 8.2 (0.0-15.0) % Eos % (Auto) 2.0 (0.0-7.0) % Baso % (Auto) 0.4 (0.0-1.5) % Neut # (Auto) 7.2 H (1.4-5.7) K/uL Lymph # (Auto) 2.8 H (0.6-2.4) K/uL [place] # (Auto) 0.9 H (0.0-0.8) K/uL Eos # (Auto) 0.2 (0.0-0.7) K/uL Baso # (Auto) 0.0 (0.0-0.1) K/uL Nucleated RBC % 0.0 /100WBC Nucleated RBCs # 0 K/uL Sodium 138 (136-146) mmol/L Potassium 4.0 (3.5-5.1) mmol/L Chloride 104 (98-110) mmol/L Carbon Dioxide 24 (21-31) mmol/L BUN 12 (6.0-23.0) mg/dL Creatinine 0.8 (0.6-1.5) mg/dL Est Cr Clr Drug Dosing 107.27 mL/min Estimated GFR (MDRD) > 60.0 ml/min Glucose 90 (60-110) mg/dL Calcium 10.1 (8.8-10.8) mg/dL Total Bilirubin 0.5 (0.1-1.5) mg/dL AST 22 (5-40) IU/L ALT 36 (8-54) IU/L Alkaline Phosphatase 111 (40-150) Troponin I < 0.10 (0.0-0.29) NG/ML Total Protein 7.8 (6.0-8.0) g/dL Albumin 4.7 (3.5-5.0) g/dL Globulin 3.1 (2.0-3.5) g/dL Albumin/Globulin Ratio 1.5 (1.3-2.8) Meds: Medications Discontinued Medications Generic Name Dose Route Start Last Admin Trade Name Freq PRN Reason Stop Dose Admin Aspirin 324 mg 12/22/16 15:54 12/22/16 16:15 Aspirin PO 12/22/16 15:55 324 mg ONETIME ONE Administration Departure - Departure Time of Disposition: 16:41 Disposition: Home, Self-Care 01 Condition: Good Clinical Impression: Encounter for medical screening examination - Discharge Information Additional Instructions: Return if symptoms persist or worsen Follow-up with primary care in 2 weeks sooner as needed Follow-up cardiology as scheduled tomorrow The following information is given to patients seen in the emergency department who are being discharged to home. This information is to outline your options for follow-up care. We provide all patients seen in our emergency department with a follow-up referral. The need for follow-up, as well as the timing and circumstances, are variable depending upon the specifics of your emergency department visit. If you don't have a primary care physician on staff, we will provide you with a referral. We always advise you to contact your personal physician following an emergency department visit to inform them of the circumstance of the visit and for follow-up with them and/or the need for any referrals to a consulting specialist. The emergency department will also refer you to a specialist when appropriate. This referral assures that you have the opportunity for follow-up care with a specialist. All of these measure are taken in an effort to provide you with optimal care, which includes your follow-up. Under all circumstances we always encourage you to contact your private physician who remains a resource for coordinating your care. When calling for follow-up care, please make the office aware that this follow-up is from your recent emergency room visit. If for any reason you are refused follow-up, please contact the [facility] emergency department at and asked to speak to the emergency department charge nurse. - My Orders Last 24 Hours: My Active Orders 12/22/16 15:54 Chest 1V Frontal [CR] Stat - Assessment/Plan Last 24 Hours: My Active Orders 12/22/16 15:54 Chest 1V Frontal [CR] Stat
[2016-12-22 16:33] LABS: CHLORIDE,CL 104 mmol/L (98-110); SODIUM,NA 138 mmol/L (136-146)
[2016-12-22 16:58] VITALS: BP 151/79
--- NOTE | 2016-12-23 10:51 | CR ---
EXAM DATE: 12/22/16 PATIENT'S AGE: 51 Patient: GONZALO ROGERS Facility: [place], [place] Site . Site : 1965 Study: XRay Chest [id number]/22/2017 4:42:24 PM Ordering Physician: Pura Garcia Final Report: INDICATION: pain CHEST, ONE VIEW An AP radiograph of the chest was performed. Comparison: 09/28/2016. The lungs appear clear and no pleural effusions are identified. The cardiomediastinal silhouette and pulmonary vasculature appear normal, as do the visualized bones aside from left shoulder postop changes, as before. IMPRESSION: No acute intrathoracic abnormality identified. MONICO DIEZ MD [employer] [facility] [employer] Dictated by: Magnus Diez MD @ 12/22/2016 16:58:45 (Electronic Signature) Report Signed by Proxy. [facility]
== END 2016-12-22 16:58 | disposition home or self-care (01) ==
LOC: MW.ED 15:45
DX: Z13.89 Encounter for screening for other disorder (principal); J45.909 Unspecified asthma, uncomplicated; K21.9 Gastro-esophageal reflux disease without esophagitis; F31.9 Bipolar disorder, unspecified; F17.210 Nicotine dependence, cigarettes, uncomplicated; E66.9 Obesity, unspecified; Z68.41 Body mass index [BMI] 40.0-44.9, adult; Z79.899 Other long term (current) drug therapy; Z88.2 Allergy status to sulfonamides; Z98.890 Other specified postprocedural states
CPT/HCPCS: 36415; 71010; 80053; 84484; 85025; 99285; A9270; 99282

== ENCOUNTER 2017-01-17 11:11 | Emergency (ER) | payer BC, MEDICAID ==
--- NOTE | 2017-01-17 11:41 | EDM.PDOC ---
ED HPI GENERAL MEDICAL PROBLEM - General Chief Complaint: Chest Pain Stated Complaint: CHEST PAIN Time Seen by Provider: 01/17/17 11:38 - History of Present Illness INITIAL COMMENTS - FREE TEXT/NARRATIVE: HISTORY AND PHYSICAL: History of present illness: Patient 51-year-old white male with history of COPD who status post lap scopic cholecystectomy from October who has subsequently followed up with cardiology and has been referred to [facility] for pulmonology and cardiology consultation he did have a cardiac stress test here he also describes a CT angiogram and a ventilation/perfusion scan that up in part of his postoperative workup all which has been negative he presents today with continued chest pain that he's had since the surgery and shortness of breath this is described as somewhat sharp shortness of breath has an exertional component. His and himself express extreme frustration with the delay in their pulmonology and cardiology outpatient appointments. Review of systems: As per history of present illness and below otherwise all systems reviewed and negative. Past medical history: As per history of present illness and as reviewed below otherwise noncontributory. Surgical history: As per history of present illness and as reviewed below otherwise noncontributory. Social history: No reported history of drug or alcohol abuse. Family history: As per history of present illness and as reviewed below otherwise noncontributory. Physical exam: HEENT: Atraumatic, normocephalic, pupils reactive, negative for conjunctival pallor or scleral icterus, mucous membranes moist, throat clear, neck supple, nontender, trachea midline. Lungs: Diminished, breath sounds equal bilaterally, chest nontender. Heart: S1S2, regular, negative for clicks, rubs, or JVD. Abdomen: Soft, nondistended, nontender. Negative for masses or hepatosplenomegaly. Negative for costovertebral tenderness. Pelvis: Stable nontender. Genitourinary: Deferred. Rectal: Deferred. Extremities: Atraumatic, negative for cords or calf pain. Neurovascular unremarkable. Neuro: Awake, alert, oriented. Cranial nerves II through XII unremarkable. Cerebellum unremarkable. Motor and sensory unremarkable throughout. Exam nonfocal. Diagnostics: CBC CMP PT/INR troponin BNP chest x-ray EKG d-dimer Therapeutics: IV O2 monitor Impression: #1 chronic chest pain #2 chronic dyspnea #3 history of COPD Definitive disposition and diagnosis as appropriate pending reevaluation and review of above. Right Anterior Chest Pain Score (Numeric/FACES): 7 - Related Data Allergies Allergy/AdvReac Type Severity Reaction Status Date / Time Sulfa (Sulfonamide Allergy Hives Verified 01/17/17 11:14 Antibiotics) Home Meds: Home Meds ALPRAZolam [Xanax] 1 mg PO TID 09/28/16 [History] carBAMazepine [Tegretol] 200 mg PO BID 09/28/16 [History] Albuterol Sulfate [Ventolin Hfa] 1 dose INH ASDIRECTED PRN 10/19/16 [History] traZODone HCl [Trazodone HCl] 300 mg PO BEDTIME 10/19/16 [History] ARIPiprazole [Abilify] 15 mg PO DAILY 11/24/16 [History] Pantoprazole [ProTONIX] 40 mg PO ACBREAKFAST 11/24/16 [History] Nicotine [Habitrol] 21 mg TRDERM Q24H #7 patch 11/26/16 [Rx] Patient's Own Medication [Ptom] 0 each INH BID each 11/26/16 [Rx] Past Medical History HEENT History: Reports: None Cardiovascular History: Reports: None Respiratory History: Reports: Asthma, Bronchitis, Recurrent, PE, Pneumonia, Recurrent Other Respiratory History: no pneumonia or bronchitis for over a year, states PE in 2002 Gastrointestinal History: Reports: Colon Polyp, GERD, Hepatitis, Other (See Below) Other Gastrointestinal History: chronic cholecystitis,barretts esophagus, hx of hepatits C (has been treated), h/o colitis Genitourinary History: Reports: None Musculoskeletal History: Reports: None Neurological History: Reports: None Psychiatric History: Reports: Addiction, Anxiety, Bipolar, Depression Endocrine/Metabolic History: Reports: Obesity/BMI 30+, Other (See Below) Other Endocrine/Metabolic History: "lymphocytic colitis" Hematologic History: Reports: None Oncologic (Cancer) History: Reports: None Dermatologic History: Reports: Psoriasis - Infectious Disease History Infectious Disease History: Reports: Hepatitis C - Past Surgical History Head Surgeries/Procedures: Reports: None GI Surgical History: Reports: Colonoscopy, EGD, Hernia, Abdominal, Hernia Repair /Other Male Surgical History: Reports: None Musculoskeletal Surgical History: Reports: Shoulder Surgery Other Musculoskeletal Surgeries/Procedures:: left rotator cuff repair, rt heel surgery x3 with screws Social & Family History - Family History Family Medical History: Noncontributory - Tobacco Use Smoking Status *Q: Current Every Day Smoker (smoked 2 1/2 ppd, recently cut down to 1 ppd) Years of Tobacco use: 35 Packs/Tins Daily: 1 - Caffeine Use Caffeine Use: Reports: Coffee Caffeine Use Comment: Pt reports 4-5 glasses daily - Recreational Drug Use Recreational Drug Use: No ED ROS GENERAL - Review of Systems Review Of Systems: ROS reveals no pertinent complaints other than HPI. ED EXAM, GENERAL - Physical Exam Exam: See Below (See dictation) Course - Vital Signs Text/Narrative:: I discussed and reviewed all of the labs and diagnostics with patient and I offered admission for observation here [facility] facilitating transfer to tertiary care center of the above was declined by patient request discharge home we'll keep his scheduled appointments with pulmonology cardiology as an outpatient Last Recorded V/S: Last Vital Signs Temp 36.5 C 01/17/17 11:15 Pulse 55 L 01/17/17 11:47 Resp 14 01/17/17 11:47 BP 123/70 01/17/17 11:47 Pulse Ox 95 01/17/17 11:50 - Orders/Labs/Meds Orders: Active Orders 24 hr Category Date Time Status Cardiac Monitoring [RC] . DIRECTED Care 01/17/17 11:20 Active EKG 12 Lead [EKG Documentation Completion] [RC] STAT Care 01/17/17 11:21 Active Chest 1V Frontal [CR] Stat Exams 01/17/17 11:20 Taken Labs: Laboratory Tests 01/17/17 01/17/17 01/17/17 Range/Units 11:34 11:34 11:34 WBC 12.78 H (4.0-11.0) K/uL RBC 5.28 (4.50-5.90) M/uL Hgb 16.5 (13.0-17.0) g/dL Hct 47.3 (38.0-50.0) % MCV 89.6 (80.0-98.0) fL MCH 31.3 (27.0-32.0) pg MCHC 34.9 (31.0-37.0) g/dL RDW Std Deviation 41.4 (28.0-62.0) fl RDW Coeff of Jalen 13 (11.0-15.0) % Plt Count 241 (150-400) K/uL MPV 10.20 (7.40-12.00) fL Neut % (Auto) 70.5 (48.0-80.0) % Lymph % (Auto) 19.1 (16.0-40.0) % Harris % (Auto) 8.0 (0.0-15.0) % Eos % (Auto) 2.2 (0.0-7.0) % Baso % (Auto) 0.2 (0.0-1.5) % Neut # (Auto) 9.0 H (1.4-5.7) K/uL Lymph # (Auto) 2.4 (0.6-2.4) K/uL Harris # (Auto) 1.0 H (0.0-0.8) K/uL Eos # (Auto) 0.3 (0.0-0.7) K/uL Baso # (Auto) 0.0 (0.0-0.1) K/uL Nucleated RBC % 0.0 /100WBC Nucleated RBCs # 0 K/uL INR 0.99 (0.86-1.11) D-Dimer, Quantitative (0.0-0.52) mg/LFEU Sodium 136 (136-146) mmol/L Potassium 4.8 (3.5-5.1) mmol/L Chloride 102 (98-110) mmol/L Carbon Dioxide 21 (21-31) mmol/L BUN 13 (6.0-23.0) mg/dL Creatinine 0.8 (0.6-1.5) mg/dL Est Cr Clr Drug Dosing 107.27 mL/min Estimated GFR (MDRD) > 60.0 ml/min Glucose 101 (60-110) mg/dL Calcium 9.9 (8.8-10.8) mg/dL Total Bilirubin 0.4 (0.1-1.5) mg/dL AST 24 (5-40) IU/L ALT 32 (8-54) IU/L Alkaline Phosphatase 104 (40-150) Troponin I (0.0-0.29) NG/ML B-Natriuretic Peptide (<100) PG/ML Total Protein 8.0 (6.0-8.0) g/dL Albumin 4.4 (3.5-5.0) g/dL Globulin 3.6 H (2.0-3.5) g/dL Albumin/Globulin Ratio 1.2 L (1.3-2.8) 01/17/17 01/17/17 01/17/17 Range/Units 11:34 11:34 11:34 WBC (4.0-11.0) K/uL RBC (4.50-5.90) M/uL Hgb (13.0-17.0) g/dL Hct (38.0-50.0) % MCV (80.0-98.0) fL MCH (27.0-32.0) pg MCHC (31.0-37.0) g/dL RDW Std Deviation (28.0-62.0) fl RDW Coeff of Jalen (11.0-15.0) % Plt Count (150-400) K/uL MPV (7.40-12.00) fL Neut % (Auto) (48.0-80.0) % Lymph % (Auto) (16.0-40.0) % Harris % (Auto) (0.0-15.0) % Eos % (Auto) (0.0-7.0) % Baso % (Auto) (0.0-1.5) % Neut # (Auto) (1.4-5.7) K/uL Lymph # (Auto) (0.6-2.4) K/uL Harris # (Auto) (0.0-0.8) K/uL Eos # (Auto) (0.0-0.7) K/uL Baso # (Auto) (0.0-0.1) K/uL Nucleated RBC % /100WBC Nucleated RBCs # K/uL INR (0.86-1.11) D-Dimer, Quantitative 0.49 (0.0-0.52) mg/LFEU Sodium (136-146) mmol/L Potassium (3.5-5.1) mmol/L Chloride (98-110) mmol/L Carbon Dioxide (21-31) mmol/L BUN (6.0-23.0) mg/dL Creatinine (0.6-1.5) mg/dL Est Cr Clr Drug Dosing mL/min Estimated GFR (MDRD) ml/min Glucose (60-110) mg/dL Calcium (8.8-10.8) mg/dL Total Bilirubin (0.1-1.5) mg/dL AST (5-40) IU/L ALT (8-54) IU/L Alkaline Phosphatase (40-150) Troponin I < 0.10 (0.0-0.29) NG/ML B-Natriuretic Peptide < 15 (<100) PG/ML Total Protein (6.0-8.0) g/dL Albumin (3.5-5.0) g/dL Globulin (2.0-3.5) g/dL Albumin/Globulin Ratio (1.3-2.8) Departure - Departure Time of Disposition: 12:30 Disposition: Home, Self-Care 01 Condition: Good Clinical Impression: Chronic chest pain, COPD (chronic obstructive pulmonary disease) - Discharge Information Forms: ED Department Discharge Additional Instructions: The following information is given to patients seen in the emergency department who are being discharged to home. This information is to outline your options for follow-up care. We provide all patients seen in our emergency department with a follow-up referral. The need for follow-up, as well as the timing and circumstances, are variable depending upon the specifics of your emergency department visit. If you don't have a primary care physician on staff, we will provide you with a referral. We always advise you to contact your personal physician following an emergency department visit to inform them of the circumstance of the visit and for follow-up with them and/or the need for any referrals to a consulting specialist. The emergency department will also refer you to a specialist when appropriate. This referral assures that you have the opportunity for followup care with a specialist. All of these measure are taken in an effort to provide you with optimal care, which includes your followup. Under all circumstances we always encourage you to contact your private physician who remains a resource for coordinating your care. When calling for followup care, please make the office aware that this follow-up is from your recent emergency room visit. If for any reason you are refused follow-up, please contact the [facility] emergency department at and asked to speak to the emergency department charge nurse Keep scheduled appointments as discussed continue current medications return as needed as discussed[] - My Orders Last 24 Hours: My Active Orders 01/17/17 11:20 Cardiac Monitoring [RC] . DIRECTED Chest 1V Frontal [CR] Stat 01/17/17 11:21 EKG 12 Lead [EKG Documentation Completion] [RC] STAT - Assessment/Plan Last 24 Hours: My Active Orders 01/17/17 11:20 Cardiac Monitoring [RC] . DIRECTED Chest 1V Frontal [CR] Stat 01/17/17 11:21 EKG 12 Lead [EKG Documentation Completion] [RC] STAT
[2017-01-17 12:01] LABS: CHLORIDE,CL 102 mmol/L (98-110); SODIUM,NA 136 mmol/L (136-146)
[2017-01-17 12:50] VITALS: BP 124/70
--- NOTE | 2017-01-18 16:20 | CR ---
EXAM DATE: 01/17/17 PATIENT'S AGE: 51 Patient: GONZALO ROGERS Facility: [place], [place] Site . Site : [id number] Study: XRay Chest [id number]/17/2017 11:46:18 AM Ordering Physician: Doctor Salazar Final Report: INDICATION: Chest Pain INDICATION: Chest pain. TECHNIQUE: Chest 1 view. COMPARISON: Chest, 2 views 12/28/2016. FINDINGS: Cardiovascular and mediastinum: Heart size and vasculature are normal in caliber and appearance. Mediastinum is within normal limits. Lungs and pleural space: Lungs are clear. No sign of infiltrate or mass. No sign of pleural effusion. No pneumothorax. Bones and soft tissues: No significant findings. IMPRESSION: Lungs are clear. Dictated by Francisco Ferrell MD @ 01/17/2017 12:13:55 PM Dictated by: Francisco Ferrell MD @ 01/17/2017 12:14:07 (Electronic Signature) Report Signed by Proxy. [facility]ya
== END 2017-01-17 12:47 | disposition home or self-care (01) ==
LOC: MW.ED 11:11
DX: J44.9 Chronic obstructive pulmonary disease, unspecified (principal); R07.9 Chest pain, unspecified; G89.29 Other chronic pain; K21.9 Gastro-esophageal reflux disease without esophagitis; F17.210 Nicotine dependence, cigarettes, uncomplicated; E66.9 Obesity, unspecified; Z88.2 Allergy status to sulfonamides; Z87.01 Personal history of pneumonia (recurrent); Z79.899 Other long term (current) drug therapy
CPT/HCPCS: 71010; 71010-26; 80053; 83880; 84484; 85025; 85379; 85610; 93005; 99283; 99285-25

== ENCOUNTER 2020-04-28 17:15 | Emergency (ER) | payer OTHER, BC ==
[2020-04-28 18:02] VITALS: PULSE 75
[2020-04-28 18:28] LABS: BLOOD UREA NITROGEN,BUN 9 mg/dL (7.0-18.0); CARBON DIOXIDE,CO2 27.2 mmol/L (21.0-32.0); CHLORIDE,CL 104 mmol/L (98-107); GLUCOSE RANDOM 105 mg/dL (74-106); POTASSIUM,K 3.4 mmol/L (3.5-5.1); SODIUM,NA 140 mmol/L (136-148)
[2020-04-28] MEDS ORDERED: Iopamidol 755 MG/ML 500 ML Multipack Bottle IVPUSH ONE (18:58)
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
[2020-04-28 19:19] VITALS: BP 140/87
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
== END 2020-04-28 19:40 | disposition home or self-care (01) ==
LOC: MW.ED 17:15
DX: M54.2 Cervicalgia (principal); D35.00 Benign neoplasm of unspecified adrenal gland; N28.1 Cyst of kidney, acquired; J45.909 Unspecified asthma, uncomplicated; F41.9 Anxiety disorder, unspecified; F31.9 Bipolar disorder, unspecified; E66.9 Obesity, unspecified; K21.9 Gastro-esophageal reflux disease without esophagitis; Z88.2 Allergy status to sulfonamides; Z79.899 Other long term (current) drug therapy; V49.60XA Unspecified car occupant injured in collision with unspecified motor vehicles in traffic accident, initial encounter
CPT/HCPCS: 36415; 72125; 74177; 80053; 85025; 99284; Q9967